=== PATIENT | male | born 1945 | race Caucasian/White ===

== ENCOUNTER 2017-08-23 10:53 | Inpatient (IN) | payer MEDICARE, OTHER ==
[~2017-08-23] VITALS: Ht 172.7 cm; Wt 78.8 kg
[~2017-08-23 10:53] MED LIST: ASPI81CH PO; CEPH500 PO; CIPR500 PO; COLC.6 PO; DIAZ5 PO; FAMO20 PO; FOLI1 PO; HYDCHL25 PO; LEVSOD50 PO; LISHYD2025 PO; LISI20 PO; METO25; METO25ER PO; MULVITMIND PO; OXYACE5T PO; PANT40 PO; POTCHL20ER PO; PRED10 PO; PROACE100 PO; PROM25 PO; SULTRIDS PO; THIA100 PO
[2017-08-23 12:00] LABS: BASOPHILS ABSOLUTE AUTO 0.03 K/mm3 (0.00-0.23); BASOPHILS PERCENT AUTO 0 % (0-2); EOSINOPHILS ABSOLUTE AUTO 0.05 K/mm3 (0.00-0.68); EOSINOPHILS PERCENT AUTO 1 % (0-6); Hematocrit 30.6 % (37.0-53.0); Hemoglobin 10.3 g/dL (13.5-17.5); IMMATURE GRAN ABSOLUTE AUTO 0.14 K/mm3 (0.00-0.10); IMMATURE GRAN PERCENT AUTO 2 % (0-1); LYMPHOCYTES ABSOLUTE AUTO 2.15 K/mm3 (0.84-5.20); LYMPHOCYTES PERCENT AUTO 24 % (21-46); MONOCYTES ABSOLUTE AUTO 0.63 K/mm3 (0.16-1.47); MONOCYTES PERCENT AUTO 7 % (4-13); Mean Corpuscular HGB 34.6 pg (26.0-34.0); Mean Corpuscular HGB Conc 33.7 g/dL (31.5-36.5); Mean Corpuscular Volume 103 fL (80-100); Mean Platelet Volume 8.9 fL (9.1-12.4); NEUTROPHILS ABSOLUTE AUTO 6.12 K/mm3 (1.96-9.15); NEUTROPHILS PERCENT AUTO 67 % (41-73); Platelet Count 152 K/mm3 (150-400); RDW Coefficient Variation 16.7 % (11.7-14.2); RDW Standard Deviation 63.3 fL (35.1-46.3); Red Blood Cell Count 2.98 M/mm3 (4.30-5.90); White Blood Cell Count 9.12 K/mm3 (4.00-11.30)
[2017-08-23 12:27] LABS: Albumin, Blood 2.4 g/dL (3.4-5.0); Albumin/Globulin Ratio 0.6 (0.8-1.8); Bilirubin, Total 0.9 mg/dL (0.1-1.0); Bun/Creatinine Ratio 15.1 (12.0-20.0); Calcium, Blood 8.3 mg/dL (8.5-10.1); Creatinine, Blood 1.46 mg/dL (0.60-1.20); Globulin, Blood 4.3 g/dL (2.2-4.0); Potassium, Blood 3.4 mmol/L (3.5-5.5); Total Protein, Blood 6.7 g/dL (6.4-8.2); Troponin I 0.044 ng/mL (0.000-0.040)
[2017-08-23 14:12] LABS: Triiodothyronine, Free 1.8 pg/mL (2.18-3.98)
[2017-08-23 21:07] LABS: CPK Creatine Kinase 93 U/L (39-308); Creatine Kinase MB Index 1.1 (0.0-4.0); Ethanol (Alcohol), Blood, Med <3 mg/dL; Troponin I 0.037 ng/mL (0.000-0.040)
[2017-08-24 04:44] LABS: Hematocrit 24.5 % (37.0-53.0); Hemoglobin 8.2 g/dL (13.5-17.5); Mean Corpuscular HGB 34.3 pg (26.0-34.0); Mean Corpuscular HGB Conc 33.5 g/dL (31.5-36.5); Mean Corpuscular Volume 103 fL (80-100); Mean Platelet Volume 8.9 fL (9.1-12.4); NRBC ABSOLUTE 0.02 K/mm3 (0.00-0.02); NRBC Auto 0.3 /100 WBC (0.0-0.2); Platelet Count 133 K/mm3 (150-400); RDW Coefficient Variation 16.6 % (11.7-14.2); RDW Standard Deviation 62.7 fL (35.1-46.3); Red Blood Cell Count 2.39 M/mm3 (4.30-5.90); White Blood Cell Count 5.58 K/mm3 (4.00-11.30)
[2017-08-24 05:20] LABS: Creatine Kinase MB 1.3 ng/mL (0.0-3.6); Creatine Kinase MB Index 6.5 (0.0-4.0); Troponin I 0.055 ng/mL (0.000-0.040)
[2017-08-24 05:26] LABS: Albumin/Globulin Ratio 0.6 (0.8-1.8); Bilirubin, Total 0.8 mg/dL (0.1-1.0); Bun/Creatinine Ratio 14.7 (12.0-20.0); Creatinine, Blood 1.36 mg/dL (0.60-1.20); Globulin, Blood 3.6 g/dL (2.2-4.0); Potassium, Blood 3.5 mmol/L (3.5-5.5); Total Protein, Blood 5.6 g/dL (6.4-8.2)
[2017-08-24 05:28] LABS: Calcium, Blood 7.3 mg/dL (8.5-10.1)
[2017-08-25 04:12] LABS: Mean Corpuscular HGB 35.2 pg (26.0-34.0); Mean Corpuscular HGB Conc 33.3 g/dL (31.5-36.5); Mean Platelet Volume 9.1 fL (9.1-12.4); NRBC ABSOLUTE 0.03 K/mm3 (0.00-0.02); NRBC Auto 0.6 /100 WBC (0.0-0.2); Platelet Count 134 K/mm3 (150-400); RDW Coefficient Variation 15.9 % (11.7-14.2); RDW Standard Deviation 61.9 fL (35.1-46.3); Red Blood Cell Count 2.27 M/mm3 (4.30-5.90); White Blood Cell Count 5.45 K/mm3 (4.00-11.30)
[2017-08-25 04:17] LABS: Mean Corpuscular Volume 106 fL (80-100)
[2017-08-25 04:33] LABS: Percent Saturation 79.6 % (20.0-50.0)
[2017-08-25 04:34] LABS: Bun/Creatinine Ratio 14.1 (12.0-20.0); Calcium, Blood 7.3 mg/dL (8.5-10.1); Creatinine, Blood 1.28 mg/dL (0.60-1.20); Potassium, Blood 3.8 mmol/L (3.5-5.5)
[2017-08-26 00:23] LABS: Magnesium, Blood 1.3 mg/dL (1.6-2.4)
[2017-08-26 01:46] LABS: Potassium, Blood 4.2 mmol/L (3.5-5.5)
[2017-08-26 05:01] LABS: Hematocrit 23.2 % (37.0-53.0); Hemoglobin 7.8 g/dL (13.5-17.5); Mean Corpuscular HGB Conc 33.6 g/dL (31.5-36.5); Mean Corpuscular Volume 104 fL (80-100); Mean Platelet Volume 9.5 fL (9.1-12.4); NRBC ABSOLUTE 0.02 K/mm3 (0.00-0.02); NRBC Auto 0.3 /100 WBC (0.0-0.2); Platelet Count 165 K/mm3 (150-400); RDW Coefficient Variation 15.8 % (11.7-14.2); RDW Standard Deviation 60.1 fL (35.1-46.3); Red Blood Cell Count 2.23 M/mm3 (4.30-5.90); White Blood Cell Count 7.02 K/mm3 (4.00-11.30)
[2017-08-26 05:22] LABS: Bun/Creatinine Ratio 12.5 (12.0-20.0); Calcium, Blood 7.7 mg/dL (8.5-10.1); Creatinine, Blood 1.36 mg/dL (0.60-1.20); Potassium, Blood 3.8 mmol/L (3.5-5.5)
[2017-08-26 07:00] LABS: Magnesium, Blood 1.7 mg/dL (1.6-2.4)
[2017-08-28 05:15] LABS: BASOPHILS ABSOLUTE AUTO 0.04 K/mm3 (0.00-0.23); BASOPHILS PERCENT AUTO 1 % (0-2); EOSINOPHILS ABSOLUTE AUTO 0.13 K/mm3 (0.00-0.68); EOSINOPHILS PERCENT AUTO 2 % (0-6); Hematocrit 24.5 % (37.0-53.0); IMMATURE GRAN ABSOLUTE AUTO 0.26 K/mm3 (0.00-0.10); IMMATURE GRAN PERCENT AUTO 3 % (0-1); LYMPHOCYTES ABSOLUTE AUTO 2.46 K/mm3 (0.84-5.20); LYMPHOCYTES PERCENT AUTO 32 % (21-46); MONOCYTES ABSOLUTE AUTO 0.43 K/mm3 (0.16-1.47); MONOCYTES PERCENT AUTO 6 % (4-13); Mean Corpuscular HGB 34.3 pg (26.0-34.0); Mean Corpuscular HGB Conc 32.7 g/dL (31.5-36.5); Mean Corpuscular Volume 105 fL (80-100); Mean Platelet Volume 9.1 fL (9.1-12.4); NEUTROPHILS ABSOLUTE AUTO 4.43 K/mm3 (1.96-9.15); NEUTROPHILS PERCENT AUTO 57 % (41-73); NRBC ABSOLUTE 0.02 K/mm3 (0.00-0.02); NRBC Auto 0.3 /100 WBC (0.0-0.2); Platelet Count 216 K/mm3 (150-400); RDW Standard Deviation 62.8 fL (35.1-46.3); Red Blood Cell Count 2.33 M/mm3 (4.30-5.90); White Blood Cell Count 7.75 K/mm3 (4.00-11.30)
[2017-08-28 06:04] LABS: Bun/Creatinine Ratio 11.4 (12.0-20.0); Calcium, Blood 8.3 mg/dL (8.5-10.1); Creatinine, Blood 1.4 mg/dL (0.60-1.20); Potassium, Blood 3.9 mmol/L (3.5-5.5)
== END 2017-08-28 13:02 | DRG 309 ==
LOC: DELPENDDIS → ER 10:53 → PCU 10:54 → ER 10:54 → PCU 10:55 → ER 12:53 → PCU 12:53 → MEDS 08-24 16:05 → PCU 08-24 16:05 → MEDS 08-25 18:23 → ENPENDDIS 08-26 09:30 → MEDS 08-28 13:02
PROVIDERS: Family Medicine; Internal Medicine; Physician Assistant
PROC: 3E0234Z Introduction of Serum, Toxoid and Vaccine into Muscle, Percutaneous Approach (ICD-10-PCS; principal; 2017-08-23)
DX: I48.91 Unspecified atrial fibrillation (principal); I50.42 Chronic combined systolic (congestive) and diastolic (congestive) heart failure; N17.9 Acute kidney failure, unspecified; I47.2 Ventricular tachycardia; I13.0 Hypertensive heart and chronic kidney disease with heart failure and stage 1 through stage 4 chronic kidney disease, or unspecified chronic kidney disease; G62.1 Alcoholic polyneuropathy; E78.5 Hyperlipidemia, unspecified; Z23 Encounter for immunization; N40.0 Benign prostatic hyperplasia without lower urinary tract symptoms; E03.9 Hypothyroidism, unspecified; E87.6 Hypokalemia; F10.10 Alcohol abuse, uncomplicated; R53.1 Weakness; K21.9 Gastro-esophageal reflux disease without esophagitis; Z91.14 Patient's other noncompliance with medication regimen; I42.0 Dilated cardiomyopathy; D63.8 Anemia in other chronic diseases classified elsewhere; N18.9 Chronic kidney disease, unspecified; F17.220 Nicotine dependence, chewing tobacco, uncomplicated
CPT/HCPCS: 36415; 71046; 76705; 78452; 80048; 80053; 82550; 82553; 82728; 83540; 83550; 83690; 83735; 83880; 84132; 84436; 84443; 84481; 84484; 85025; 85027; 93005; 93010; 93017; 93308; 93321; 97110; 97116; 97162; 97166; 97535; 99285; A9500; G0480; G8978; G8979; G8987; G8988; J0280; J1650; J2785; J3475; J7030

== ENCOUNTER 2017-09-13 16:12 | Emergency (ER) | payer MEDICARE, OTHER ==
[~2017-09-13] VITALS: Ht 172.7 cm; Wt 81.7 kg
[2017-09-13] MEDS ORDERED: LEVSOD50 PO (16:35)
[2017-09-13] MEDS ORDERED: SPIR25 PO (16:36)
[2017-09-13 16:37] LABS: BASOPHILS ABSOLUTE AUTO 0.03 K/mm3 (0.00-0.23); BASOPHILS PERCENT AUTO 0 % (0-2); EOSINOPHILS PERCENT AUTO 0 % (0-6); Hematocrit 30.7 % (37.0-53.0); Hemoglobin 9.8 g/dL (13.5-17.5); IMMATURE GRAN ABSOLUTE AUTO 0.03 K/mm3 (0.00-0.10); IMMATURE GRAN PERCENT AUTO 0 % (0-1); LYMPHOCYTES ABSOLUTE AUTO 1.52 K/mm3 (0.84-5.20); LYMPHOCYTES PERCENT AUTO 15 % (21-46); MONOCYTES ABSOLUTE AUTO 0.66 K/mm3 (0.16-1.47); MONOCYTES PERCENT AUTO 7 % (4-13); Mean Corpuscular HGB Conc 31.9 g/dL (31.5-36.5); Mean Corpuscular Volume 103 fL (80-100); Mean Platelet Volume 8.6 fL (9.1-12.4); NEUTROPHILS ABSOLUTE AUTO 7.87 K/mm3 (1.96-9.15); NEUTROPHILS PERCENT AUTO 78 % (41-73); Platelet Count 224 K/mm3 (150-400); RDW Coefficient Variation 14.6 % (11.7-14.2); RDW Standard Deviation 55.2 fL (35.1-46.3); Red Blood Cell Count 2.97 M/mm3 (4.30-5.90); White Blood Cell Count 10.11 K/mm3 (4.00-11.30)
[2017-09-13 17:07] LABS: Albumin, Blood 2.8 g/dL (3.4-5.0); Albumin/Globulin Ratio 0.7 (0.8-1.8); Bilirubin, Total 1.9 mg/dL (0.1-1.0); Bun/Creatinine Ratio 15.3 (12.0-20.0); Calcium, Blood 8.1 mg/dL (8.5-10.1); Creatinine, Blood 1.31 mg/dL (0.60-1.20); Globulin, Blood 4.2 g/dL (2.2-4.0); Potassium, Blood 4.4 mmol/L (3.5-5.5); Troponin I 0.197 ng/mL (0.000-0.040)
== END 2017-09-13 19:07 | disposition other institution (70) ==
LOC: ER 16:12
PROVIDERS: Emergency Medicine
DX: S06.5X9A Traumatic subdural hemorrhage with loss of consciousness of unspecified duration, initial encounter (principal); F10.20 Alcohol dependence, uncomplicated; E87.2 Acidosis; R79.89 Other specified abnormal findings of blood chemistry; I13.0 Hypertensive heart and chronic kidney disease with heart failure and stage 1 through stage 4 chronic kidney disease, or unspecified chronic kidney disease; N18.9 Chronic kidney disease, unspecified; I50.9 Heart failure, unspecified; E78.5 Hyperlipidemia, unspecified; Z90.49 Acquired absence of other specified parts of digestive tract; Z88.6 Allergy status to analgesic agent; W18.30XA Fall on same level, unspecified, initial encounter
CPT/HCPCS: 36415; 70450; 72170; 80053; 84484; 85025; 93005; 93010; 99285

== ENCOUNTER 2017-09-19 20:00 | Emergency (ER) | payer MEDICARE, OTHER ==
[~2017-09-19] VITALS: Ht 172.7 cm; Wt 81.7 kg
[~2017-09-19 20:00] MED LIST changes: +SPIR25 PO
[2017-09-19] MEDS ORDERED: TAMS.4ER PO (20:21)
[2017-09-19] MEDS ORDERED: ATOR40TA PO (20:21)
[2017-09-19] MEDS ORDERED: THIA100 PO (20:21)
[2017-09-19] MEDS ORDERED: CHOL10002 PO (20:21)
[2017-09-19] MEDS ORDERED: METO100ER PO (20:22)
== END 2017-09-20 00:04 | disposition short-term general hospital (02) ==
LOC: ER 20:00
DX: S06.5X0A Traumatic subdural hemorrhage without loss of consciousness, initial encounter (principal); G93.89 Other specified disorders of brain; I10 Essential (primary) hypertension; W18.30XA Fall on same level, unspecified, initial encounter; Z88.8 Allergy status to other drugs, medicaments and biological substances; Z88.5 Allergy status to narcotic agent; Z79.899 Other long term (current) drug therapy
CPT/HCPCS: 70450; 72125; 99285

== ENCOUNTER 2017-11-16 13:33 | Inpatient (IN) | payer MEDICARE, OTHER ==
[~2017-11-16] VITALS: Ht 172.7 cm; Wt 80.1 kg
[~2017-11-16 13:33] MED LIST changes: +ATOR40TA PO; +CHOL10002 PO; +METO100ER PO; +TAMS.4ER PO
[2017-11-16 14:24] LABS: BASOPHILS ABSOLUTE AUTO 0.05 K/mm3 (0.00-0.23); BASOPHILS PERCENT AUTO 1 % (0-2); EOSINOPHILS ABSOLUTE AUTO 0.11 K/mm3 (0.00-0.68); EOSINOPHILS PERCENT AUTO 2 % (0-6); Hematocrit 31.2 % (37.0-53.0); Hemoglobin 10.2 g/dL (13.5-17.5); IMMATURE GRAN ABSOLUTE AUTO 0.02 K/mm3 (0.00-0.10); IMMATURE GRAN PERCENT AUTO 0 % (0-1); LYMPHOCYTES ABSOLUTE AUTO 1.47 K/mm3 (0.84-5.20); LYMPHOCYTES PERCENT AUTO 22 % (21-46); MONOCYTES ABSOLUTE AUTO 0.39 K/mm3 (0.16-1.47); MONOCYTES PERCENT AUTO 6 % (4-13); Mean Corpuscular HGB 29.7 pg (26.0-34.0); Mean Corpuscular HGB Conc 32.7 g/dL (31.5-36.5); Mean Corpuscular Volume 91 fL (80-100); Mean Platelet Volume 8.5 fL (9.1-12.4); NEUTROPHILS ABSOLUTE AUTO 4.69 K/mm3 (1.96-9.15); NEUTROPHILS PERCENT AUTO 70 % (41-73); Platelet Count 261 K/mm3 (150-400); RDW Standard Deviation 53.1 fL (35.1-46.3); Red Blood Cell Count 3.43 M/mm3 (4.30-5.90); White Blood Cell Count 6.73 K/mm3 (4.00-11.30)
[2017-11-16 14:51] LABS: Alanine Aminotransfer (ALT/SGP 26 U/L (12-78); Albumin, Blood 2.3 g/dL (3.4-5.0); Albumin/Globulin Ratio 0.5 (0.8-1.8); Alk Phos 147 U/L (50-136); Anion Gap 10 mmol/L (6-16); Aspartate Aminotrans (AST/SGOT 29 U/L (12-37); Bilirubin, Total 0.5 mg/dL (0.1-1.0); Blood Urea Nitrogen 10 mg/dL (8-24); Bun/Creatinine Ratio 9.8 (12.0-20.0); CO2, Blood 22 mmol/L (21-32); Calcium, Blood 7.8 mg/dL (8.5-10.1); Chloride, Blood 102 mmol/L (98-108); Creatinine, Blood 1.02 mg/dL (0.60-1.20); Globulin, Blood 4.2 g/dL (2.2-4.0); Glomerular Filtration Rate >60 (60-); Glucose, Blood 94 mg/dL (70-99); Potassium, Blood 3.5 mmol/L (3.5-5.5); Sodium, Blood 134 mmol/L (136-145); Total Protein, Blood 6.5 g/dL (6.4-8.2); Troponin I 0.025 ng/mL (0.000-0.040)
[2017-11-16] MEDS ORDERED: DOCU100 PO (18:30)
[2017-11-16] MEDS ORDERED: METO50 PO (18:31)
[2017-11-17 02:46] LABS: Alanine Aminotransfer (ALT/SGP 23 U/L (12-78); Albumin, Blood 1.9 g/dL (3.4-5.0); Albumin/Globulin Ratio 0.5 (0.8-1.8); Alk Phos 122 U/L (50-136); Anion Gap 8 mmol/L (6-16); Aspartate Aminotrans (AST/SGOT 22 U/L (12-37); Bilirubin, Total 0.4 mg/dL (0.1-1.0); Blood Urea Nitrogen 11 mg/dL (8-24); Bun/Creatinine Ratio 9.7 (12.0-20.0); CO2, Blood 26 mmol/L (21-32); Calcium, Blood 7.4 mg/dL (8.5-10.1); Chloride, Blood 103 mmol/L (98-108); Creatinine, Blood 1.13 mg/dL (0.60-1.20); Globulin, Blood 3.6 g/dL (2.2-4.0); Glomerular Filtration Rate >60 (60-); Glucose, Blood 100 mg/dL (70-99); Magnesium, Blood 1.5 mg/dL (1.6-2.4); Phosphorus, Blood 3.7 mg/dL (2.5-4.9); Potassium, Blood 3.4 mmol/L (3.5-5.5); Sodium, Blood 137 mmol/L (136-145); Total Protein, Blood 5.5 g/dL (6.4-8.2)
[2017-11-17 03:00] LABS: International Normalized Ratio 1.19; Prothrombin Time Results 12.4 Sec (9.7-11.5)
[2017-11-17 11:59] LABS: Alanine Aminotransfer (ALT/SGP 22 U/L (12-78); Albumin, Blood 2.2 g/dL (3.4-5.0); Albumin/Globulin Ratio 0.6 (0.8-1.8); Alk Phos 133 U/L (50-136); Anion Gap 6 mmol/L (6-16); Aspartate Aminotrans (AST/SGOT 27 U/L (12-37); Bilirubin, Total 0.6 mg/dL (0.1-1.0); Blood Urea Nitrogen 12 mg/dL (8-24); Bun/Creatinine Ratio 10.4 (12.0-20.0); CO2, Blood 26 mmol/L (21-32); Calcium, Blood 7.8 mg/dL (8.5-10.1); Chloride, Blood 102 mmol/L (98-108); Creatinine, Blood 1.15 mg/dL (0.60-1.20); Globulin, Blood 3.8 g/dL (2.2-4.0); Glomerular Filtration Rate >60 (60-); Glucose, Blood 93 mg/dL (70-99); Potassium, Blood 3.2 mmol/L (3.5-5.5); Sodium, Blood 134 mmol/L (136-145)
[2017-11-18 03:48] LABS: BASOPHILS ABSOLUTE AUTO 0.04 K/mm3 (0.00-0.23); BASOPHILS PERCENT AUTO 1 % (0-2); EOSINOPHILS PERCENT AUTO 2 % (0-6); Hematocrit 26.3 % (37.0-53.0); Hemoglobin 8.7 g/dL (13.5-17.5); IMMATURE GRAN ABSOLUTE AUTO 0.02 K/mm3 (0.00-0.10); IMMATURE GRAN PERCENT AUTO 0 % (0-1); LYMPHOCYTES ABSOLUTE AUTO 1.62 K/mm3 (0.84-5.20); LYMPHOCYTES PERCENT AUTO 31 % (21-46); MONOCYTES PERCENT AUTO 8 % (4-13); Mean Corpuscular HGB 29.7 pg (26.0-34.0); Mean Corpuscular HGB Conc 33.1 g/dL (31.5-36.5); Mean Corpuscular Volume 90 fL (80-100); Mean Platelet Volume 8.5 fL (9.1-12.4); NEUTROPHILS ABSOLUTE AUTO 3.02 K/mm3 (1.96-9.15); NEUTROPHILS PERCENT AUTO 58 % (41-73); Platelet Count 205 K/mm3 (150-400); RDW Standard Deviation 53.3 fL (35.1-46.3); Red Blood Cell Count 2.93 M/mm3 (4.30-5.90)
[2017-11-18 04:00] LABS: International Normalized Ratio 1.27; Prothrombin Time Results 13.3 Sec (9.7-11.5)
[2017-11-18 04:10] LABS: Albumin, Blood 1.8 g/dL (3.4-5.0); Albumin/Globulin Ratio 0.5 (0.8-1.8); Bilirubin, Total 0.4 mg/dL (0.1-1.0); Bun/Creatinine Ratio 10.2 (12.0-20.0); Calcium, Blood 7.3 mg/dL (8.5-10.1); Creatinine, Blood 1.27 mg/dL (0.60-1.20); Globulin, Blood 3.5 g/dL (2.2-4.0); Potassium, Blood 3.6 mmol/L (3.5-5.5); Total Protein, Blood 5.3 g/dL (6.4-8.2)
[2017-11-18 12:29] LABS: BASOPHILS ABSOLUTE AUTO 0.05 K/mm3 (0.00-0.23); BASOPHILS PERCENT AUTO 1 % (0-2); EOSINOPHILS ABSOLUTE AUTO 0.11 K/mm3 (0.00-0.68); EOSINOPHILS PERCENT AUTO 2 % (0-6); Hematocrit 29.6 % (37.0-53.0); Hemoglobin 9.5 g/dL (13.5-17.5); IMMATURE GRAN ABSOLUTE AUTO 0.02 K/mm3 (0.00-0.10); IMMATURE GRAN PERCENT AUTO 0 % (0-1); LYMPHOCYTES ABSOLUTE AUTO 1.72 K/mm3 (0.84-5.20); LYMPHOCYTES PERCENT AUTO 29 % (21-46); MONOCYTES ABSOLUTE AUTO 0.41 K/mm3 (0.16-1.47); MONOCYTES PERCENT AUTO 7 % (4-13); Mean Corpuscular HGB 30.3 pg (26.0-34.0); Mean Corpuscular HGB Conc 32.1 g/dL (31.5-36.5); Mean Platelet Volume 8.6 fL (9.1-12.4); NEUTROPHILS ABSOLUTE AUTO 3.64 K/mm3 (1.96-9.15); NEUTROPHILS PERCENT AUTO 61 % (41-73); Platelet Count 235 K/mm3 (150-400); RDW Coefficient Variation 16.2 % (11.7-14.2); RDW Standard Deviation 56.2 fL (35.1-46.3); Red Blood Cell Count 3.14 M/mm3 (4.30-5.90); White Blood Cell Count 5.95 K/mm3 (4.00-11.30)
[2017-11-18 12:40] LABS: Mean Corpuscular Volume 94 fL (80-100)
[2017-11-18 12:48] LABS: Alanine Aminotransfer (ALT/SGP 20 U/L (12-78); Albumin/Globulin Ratio 0.5 (0.8-1.8); Alk Phos 123 U/L (50-136); Anion Gap 10 mmol/L (6-16); Aspartate Aminotrans (AST/SGOT 20 U/L (12-37); Bilirubin, Total 0.3 mg/dL (0.1-1.0); Blood Urea Nitrogen 15 mg/dL (8-24); Bun/Creatinine Ratio 12.6 (12.0-20.0); CO2, Blood 26 mmol/L (21-32); Calcium, Blood 7.7 mg/dL (8.5-10.1); Chloride, Blood 100 mmol/L (98-108); Creatinine, Blood 1.19 mg/dL (0.60-1.20); Globulin, Blood 3.9 g/dL (2.2-4.0); Glomerular Filtration Rate >60 (60-); Glucose, Blood 84 mg/dL (70-99); Potassium, Blood 3.2 mmol/L (3.5-5.5); Sodium, Blood 136 mmol/L (136-145); Total Protein, Blood 5.9 g/dL (6.4-8.2)
[2017-11-19 04:14] LABS: BASOPHILS ABSOLUTE AUTO 0.05 K/mm3 (0.00-0.23); BASOPHILS PERCENT AUTO 1 % (0-2); EOSINOPHILS ABSOLUTE AUTO 0.12 K/mm3 (0.00-0.68); EOSINOPHILS PERCENT AUTO 2 % (0-6); Hematocrit 27.4 % (37.0-53.0); Hemoglobin 9.1 g/dL (13.5-17.5); IMMATURE GRAN ABSOLUTE AUTO 0.02 K/mm3 (0.00-0.10); IMMATURE GRAN PERCENT AUTO 0 % (0-1); LYMPHOCYTES ABSOLUTE AUTO 1.74 K/mm3 (0.84-5.20); LYMPHOCYTES PERCENT AUTO 29 % (21-46); MONOCYTES ABSOLUTE AUTO 0.46 K/mm3 (0.16-1.47); MONOCYTES PERCENT AUTO 8 % (4-13); Mean Corpuscular HGB 30.3 pg (26.0-34.0); Mean Corpuscular HGB Conc 33.2 g/dL (31.5-36.5); Mean Corpuscular Volume 91 fL (80-100); Mean Platelet Volume 8.6 fL (9.1-12.4); NEUTROPHILS ABSOLUTE AUTO 3.68 K/mm3 (1.96-9.15); NEUTROPHILS PERCENT AUTO 61 % (41-73); Platelet Count 217 K/mm3 (150-400); RDW Coefficient Variation 15.9 % (11.7-14.2); RDW Standard Deviation 53.1 fL (35.1-46.3); White Blood Cell Count 6.07 K/mm3 (4.00-11.30)
[2017-11-19 04:24] LABS: International Normalized Ratio 1.52
[2017-11-19 04:32] LABS: Alanine Aminotransfer (ALT/SGP 16 U/L (12-78); Albumin, Blood 1.9 g/dL (3.4-5.0); Albumin/Globulin Ratio 0.6 (0.8-1.8); Alk Phos 100 U/L (50-136); Anion Gap 8 mmol/L (6-16); Aspartate Aminotrans (AST/SGOT 12 U/L (12-37); Bilirubin, Total 0.2 mg/dL (0.1-1.0); Blood Urea Nitrogen 16 mg/dL (8-24); Bun/Creatinine Ratio 14.4 (12.0-20.0); CO2, Blood 28 mmol/L (21-32); Calcium, Blood 7.5 mg/dL (8.5-10.1); Chloride, Blood 98 mmol/L (98-108); Creatinine, Blood 1.11 mg/dL (0.60-1.20); Globulin, Blood 3.4 g/dL (2.2-4.0); Glomerular Filtration Rate >60 (60-); Glucose, Blood 89 mg/dL (70-99); Potassium, Blood 3.3 mmol/L (3.5-5.5); Sodium, Blood 134 mmol/L (136-145); Total Protein, Blood 5.3 g/dL (6.4-8.2)
[2017-11-20 04:13] LABS: BASOPHILS ABSOLUTE AUTO 0.04 K/mm3 (0.00-0.23); BASOPHILS PERCENT AUTO 1 % (0-2); EOSINOPHILS ABSOLUTE AUTO 0.19 K/mm3 (0.00-0.68); EOSINOPHILS PERCENT AUTO 3 % (0-6); Hematocrit 27.4 % (37.0-53.0); IMMATURE GRAN ABSOLUTE AUTO 0.03 K/mm3 (0.00-0.10); IMMATURE GRAN PERCENT AUTO 1 % (0-1); LYMPHOCYTES ABSOLUTE AUTO 1.45 K/mm3 (0.84-5.20); LYMPHOCYTES PERCENT AUTO 23 % (21-46); MONOCYTES ABSOLUTE AUTO 0.55 K/mm3 (0.16-1.47); MONOCYTES PERCENT AUTO 9 % (4-13); Mean Corpuscular HGB 30.5 pg (26.0-34.0); Mean Corpuscular HGB Conc 32.8 g/dL (31.5-36.5); Mean Corpuscular Volume 93 fL (80-100); Mean Platelet Volume 8.9 fL (9.1-12.4); NEUTROPHILS ABSOLUTE AUTO 3.96 K/mm3 (1.96-9.15); NEUTROPHILS PERCENT AUTO 64 % (41-73); Platelet Count 220 K/mm3 (150-400); RDW Coefficient Variation 15.9 % (11.7-14.2); RDW Standard Deviation 54.1 fL (35.1-46.3); Red Blood Cell Count 2.95 M/mm3 (4.30-5.90); White Blood Cell Count 6.22 K/mm3 (4.00-11.30)
[2017-11-20 04:21] LABS: International Normalized Ratio 1.88; Prothrombin Time Results 19.9 Sec (9.7-11.5)
[2017-11-20 04:37] LABS: Anion Gap 7 mmol/L (6-16); Blood Urea Nitrogen 18 mg/dL (8-24); Bun/Creatinine Ratio 15.5 (12.0-20.0); CO2, Blood 30 mmol/L (21-32); Calcium, Blood 7.7 mg/dL (8.5-10.1); Chloride, Blood 96 mmol/L (98-108); Creatinine, Blood 1.16 mg/dL (0.60-1.20); Glomerular Filtration Rate >60 (60-); Glucose, Blood 94 mg/dL (70-99); Potassium, Blood 3.5 mmol/L (3.5-5.5); Sodium, Blood 133 mmol/L (136-145)
[2017-11-21 04:19] LABS: International Normalized Ratio 2.96; Prothrombin Time Results 31.8 Sec (9.7-11.5)
[2017-11-22 04:21] LABS: BASOPHILS ABSOLUTE AUTO 0.03 K/mm3 (0.00-0.23); BASOPHILS PERCENT AUTO 1 % (0-2); EOSINOPHILS ABSOLUTE AUTO 0.22 K/mm3 (0.00-0.68); EOSINOPHILS PERCENT AUTO 4 % (0-6); Hematocrit 27.6 % (37.0-53.0); IMMATURE GRAN ABSOLUTE AUTO 0.02 K/mm3 (0.00-0.10); IMMATURE GRAN PERCENT AUTO 0 % (0-1); LYMPHOCYTES PERCENT AUTO 25 % (21-46); MONOCYTES ABSOLUTE AUTO 0.39 K/mm3 (0.16-1.47); MONOCYTES PERCENT AUTO 6 % (4-13); Mean Corpuscular HGB 30.2 pg (26.0-34.0); Mean Corpuscular HGB Conc 32.6 g/dL (31.5-36.5); Mean Corpuscular Volume 93 fL (80-100); Mean Platelet Volume 9.1 fL (9.1-12.4); NEUTROPHILS ABSOLUTE AUTO 3.91 K/mm3 (1.96-9.15); NEUTROPHILS PERCENT AUTO 65 % (41-73); Platelet Count 218 K/mm3 (150-400); RDW Coefficient Variation 15.8 % (11.7-14.2); RDW Standard Deviation 53.6 fL (35.1-46.3); Red Blood Cell Count 2.98 M/mm3 (4.30-5.90); White Blood Cell Count 6.07 K/mm3 (4.00-11.30)
[2017-11-22 04:39] LABS: International Normalized Ratio 2.79; Prothrombin Time Results 29.9 Sec (9.7-11.5)
[2017-11-22 04:40] LABS: Anion Gap 8 mmol/L (6-16); Blood Urea Nitrogen 22 mg/dL (8-24); Bun/Creatinine Ratio 18.2 (12.0-20.0); CO2, Blood 29 mmol/L (21-32); Calcium, Blood 7.8 mg/dL (8.5-10.1); Chloride, Blood 95 mmol/L (98-108); Creatinine, Blood 1.21 mg/dL (0.60-1.20); Glomerular Filtration Rate >60 (60-); Glucose, Blood 126 mg/dL (70-99); Potassium, Blood 3.7 mmol/L (3.5-5.5); Sodium, Blood 132 mmol/L (136-145)
[2017-11-23 04:13] LABS: International Normalized Ratio 3.03; Prothrombin Time Results 32.6 Sec (9.7-11.5)
[2017-11-23 04:17] LABS: Albumin, Blood 2.1 g/dL (3.4-5.0); Anion Gap 8 mmol/L (6-16); Blood Urea Nitrogen 21 mg/dL (8-24); Bun/Creatinine Ratio 15.8 (12.0-20.0); CO2, Blood 28 mmol/L (21-32); Calcium, Blood 7.7 mg/dL (8.5-10.1); Chloride, Blood 94 mmol/L (98-108); Creatinine, Blood 1.33 mg/dL (0.60-1.20); Glomerular Filtration Rate 56 (60-); Glucose, Blood 108 mg/dL (70-99); Sodium, Blood 130 mmol/L (136-145)
[2017-11-24 04:57] LABS: Albumin, Blood 2.1 g/dL (3.4-5.0); Anion Gap 8 mmol/L (6-16); Blood Urea Nitrogen 20 mg/dL (8-24); Bun/Creatinine Ratio 16.4 (12.0-20.0); CO2, Blood 29 mmol/L (21-32); Calcium, Blood 7.8 mg/dL (8.5-10.1); Chloride, Blood 95 mmol/L (98-108); Creatinine, Blood 1.22 mg/dL (0.60-1.20); Glomerular Filtration Rate >60 (60-); Glucose, Blood 104 mg/dL (70-99); Phosphorus, Blood 3.2 mg/dL (2.5-4.9); Potassium, Blood 3.6 mmol/L (3.5-5.5); Sodium, Blood 132 mmol/L (136-145)
[2017-11-24 05:04] LABS: International Normalized Ratio 3.07
[2017-11-25 05:30] LABS: International Normalized Ratio 2.56; Prothrombin Time Results 27.4 Sec (9.7-11.5)
[2017-11-25 05:47] LABS: Anion Gap 8 mmol/L (6-16); Blood Urea Nitrogen 22 mg/dL (8-24); Bun/Creatinine Ratio 17.6 (12.0-20.0); CO2, Blood 28 mmol/L (21-32); Calcium, Blood 7.7 mg/dL (8.5-10.1); Chloride, Blood 96 mmol/L (98-108); Creatinine, Blood 1.25 mg/dL (0.60-1.20); Glomerular Filtration Rate >60 (60-); Glucose, Blood 93 mg/dL (70-99); Sodium, Blood 132 mmol/L (136-145)
[2017-11-26 07:17] LABS: International Normalized Ratio 2.34
[2017-11-26 10:02] LABS: Anion Gap 8 mmol/L (6-16); Blood Urea Nitrogen 23 mg/dL (8-24); Bun/Creatinine Ratio 21.7 (12.0-20.0); CO2, Blood 27 mmol/L (21-32); Calcium, Blood 7.7 mg/dL (8.5-10.1); Chloride, Blood 97 mmol/L (98-108); Creatinine, Blood 1.06 mg/dL (0.60-1.20); Glomerular Filtration Rate >60 (60-); Glucose, Blood 113 mg/dL (70-99); Potassium, Blood 3.9 mmol/L (3.5-5.5); Sodium, Blood 132 mmol/L (136-145)
[2017-11-27 05:21] LABS: International Normalized Ratio 2.16
[2017-11-27 05:26] LABS: Anion Gap 8 mmol/L (6-16); Blood Urea Nitrogen 22 mg/dL (8-24); CO2, Blood 27 mmol/L (21-32); Calcium, Blood 8.1 mg/dL (8.5-10.1); Chloride, Blood 97 mmol/L (98-108); Creatinine, Blood 1.16 mg/dL (0.60-1.20); Glomerular Filtration Rate >60 (60-); Glucose, Blood 106 mg/dL (70-99); Potassium, Blood 4.2 mmol/L (3.5-5.5); Sodium, Blood 132 mmol/L (136-145)
[2017-11-27] MEDS ORDERED: MUCUS RELIEF600 MG PO (11:39)
[2017-11-27] MEDS ORDERED: Lisinopril2.5 MG PO (11:40)
[2017-11-27] MEDS ORDERED: FURO20 PO (11:42)
[2017-11-27] MEDS ORDERED: XARELTO15 MG PO (11:43)
== END 2017-11-27 12:47 | disposition home health service (06) | DRG 291 ==
LOC: ER 13:33 → PCU 16:22 → MEDS 16:22 → PCU 17:25 → MEDS 11-23 11:15
PROVIDERS: Emergency Medicine; Family Medicine; Internal Medicine
DX: I13.0 Hypertensive heart and chronic kidney disease with heart failure and stage 1 through stage 4 chronic kidney disease, or unspecified chronic kidney disease (principal); J18.9 Pneumonia, unspecified organism; I50.43 Acute on chronic combined systolic (congestive) and diastolic (congestive) heart failure; J96.21 Acute and chronic respiratory failure with hypoxia; J44.0 Chronic obstructive pulmonary disease with (acute) lower respiratory infection; E87.1 Hypo-osmolality and hyponatremia; N17.9 Acute kidney failure, unspecified; I82.401 Acute embolism and thrombosis of unspecified deep veins of right lower extremity; N18.3 Chronic kidney disease, stage 3 (moderate); N40.0 Benign prostatic hyperplasia without lower urinary tract symptoms; F17.220 Nicotine dependence, chewing tobacco, uncomplicated; F10.20 Alcohol dependence, uncomplicated; E03.9 Hypothyroidism, unspecified; Z91.19 Patient's noncompliance with other medical treatment and regimen; D64.9 Anemia, unspecified; I48.2 Chronic atrial fibrillation; I95.9 Hypotension, unspecified; I25.10 Atherosclerotic heart disease of native coronary artery without angina pectoris; T50.2X5A Adverse effect of carbonic-anhydrase inhibitors, benzothiadiazides and other diuretics, initial encounter
CPT/HCPCS: 36415; 51702; 71045; 71046; 71250; 80048; 80053; 80069; 83735; 83880; 84100; 84443; 84484; 85025; 85610; 86850; 86900; 86901; 93005; 93010; 93306; 93970; 93971; 94760; 96374; 97110; 97116; 97162; 97166; 97530; 97535; 99285; G0515; G8978; G8979; G8980; G8987; G8988; J0295; J1650; J1940; J1956; J2405; J3411; J3475; J3480; J7030; J7042

== ENCOUNTER 2018-10-09 17:16 | Inpatient (IN) | payer MEDICARE, OTHER ==
[~2018-10-09] VITALS: Ht 172.7 cm; Wt 73.4 kg
[~2018-10-09 17:16] MED LIST changes: +DOCU100 PO; +FURO20 PO; +Lisinopril2.5 MG PO; +METO50 PO; +MUCUS RELIEF600 MG PO; +Thiamine HCl100 MG PO; +XARELTO15 MG PO
[2018-10-09 20:53] LABS: BASOPHILS ABSOLUTE AUTO 0.06 K/mm3 (0.00-0.23); BASOPHILS PERCENT AUTO 1 % (0-2); EOSINOPHILS ABSOLUTE AUTO 0.13 K/mm3 (0.00-0.68); EOSINOPHILS PERCENT AUTO 3 % (0-6); Hematocrit 33.6 % (37.0-53.0); Hemoglobin 10.7 g/dL (13.5-17.5); IMMATURE GRAN ABSOLUTE AUTO 0.01 K/mm3 (0.00-0.10); IMMATURE GRAN PERCENT AUTO 0 % (0-1); LYMPHOCYTES ABSOLUTE AUTO 1.53 K/mm3 (0.84-5.20); LYMPHOCYTES PERCENT AUTO 29 % (21-46); MONOCYTES ABSOLUTE AUTO 0.57 K/mm3 (0.16-1.47); MONOCYTES PERCENT AUTO 11 % (4-13); Mean Corpuscular HGB 30.4 pg (26.0-34.0); Mean Corpuscular HGB Conc 31.8 g/dL (31.5-36.5); Mean Corpuscular Volume 96 fL (80-100); Mean Platelet Volume 8.8 fL (9.1-12.4); NEUTROPHILS ABSOLUTE AUTO 2.91 K/mm3 (1.96-9.15); NEUTROPHILS PERCENT AUTO 56 % (41-73); Platelet Count 247 K/mm3 (150-400); RDW Coefficient Variation 14.8 % (11.7-14.2); RDW Standard Deviation 51.9 fL (35.1-46.3); Red Blood Cell Count 3.52 M/mm3 (4.30-5.90); White Blood Cell Count 5.21 K/mm3 (4.00-11.30)
[2018-10-09 21:13] LABS: Albumin, Blood 3.2 g/dL (3.4-5.0); Albumin/Globulin Ratio 0.8 (0.8-1.8); Bilirubin, Total 0.6 mg/dL (0.1-1.0); Bun/Creatinine Ratio 14.4 (12.0-20.0); Calcium, Blood 8.7 mg/dL (8.5-10.1); Creatinine, Blood 1.39 mg/dL (0.60-1.20); Total Protein, Blood 7.2 g/dL (6.4-8.2); Troponin I 0.029 ng/mL (0.000-0.040)
[2018-10-09 23:30] LABS: Ethanol (Alcohol), Blood, Med <3 mg/dL; Magnesium, Blood 1.8 mg/dL (1.6-2.4)
[2018-10-10 06:34] LABS: Hematocrit 35.2 % (37.0-53.0); Hemoglobin 10.8 g/dL (13.5-17.5); Mean Corpuscular HGB 29.8 pg (26.0-34.0); Mean Corpuscular HGB Conc 30.7 g/dL (31.5-36.5); Mean Corpuscular Volume 97 fL (80-100); Mean Platelet Volume 8.8 fL (9.1-12.4); Platelet Count 240 K/mm3 (150-400); RDW Standard Deviation 53.4 fL (35.1-46.3); Red Blood Cell Count 3.62 M/mm3 (4.30-5.90)
[2018-10-10 06:52] LABS: Bun/Creatinine Ratio 14.3 (12.0-20.0); Calcium, Blood 8.7 mg/dL (8.5-10.1); Creatinine, Blood 1.47 mg/dL (0.60-1.20); Magnesium, Blood 1.8 mg/dL (1.6-2.4); Potassium, Blood 4.1 mmol/L (3.5-5.5)
[2018-10-10 09:54] LABS: Total Protein, Blood 7.1 g/dL (6.4-8.2)
[2018-10-10 11:11] LABS: International Normalized Ratio 1.25
[2018-10-10 12:55] LABS: Automated BF WBC Count 0.046 K/mm3 (0-999); Body Fluid WBC Count 46 /mm3 (0-999)
[2018-10-10 13:10] LABS: Albumin, Body Fluid 1.7 g/dL; Lactate Dehydrogenase, Body Fl 66 U/L
[2018-10-10 13:19] LABS: Appearance, Body Fluid Clear (Clear); Color, Body Fluid L Yellow (None-Yellow)
[2018-10-10 13:22] LABS: RBC Count, Body Fluid 5 /mm3 (0-0)
[2018-10-10 13:26] LABS: Total Cell Count, Body Fluid 100
--- NOTE | 2018-10-11 03:50 | NUR ---
PCU CLERICAL INVESTIGATOR CALLED STATED PT HAD SHORT RUN OF V-TACH. PT ASSESSED AND DENIES CX PAIN OR SOB. TECH SENDING STRIP.
--- NOTE | 2018-10-11 04:58 | NUR ---
SHIFT SUMMARY PT ARRIVED TO FLOOR FROM ER. PT HAS BEEN RESTING WELL SINCE ARRIVAL. PT HAD NO COMPLAINTS OR ACUTE ISSUES. PT DID HAVE SHORT RUN OF V-TACH PER MARKETING DESIGNER. PT HAD NO ISSUES FROM THIS. PT IS CURRENTLY SLEEPING AND BREATHING EASY. CALL LIGHT IN REACH.
[2018-10-11 05:26] LABS: BASOPHILS ABSOLUTE AUTO 0.04 K/mm3 (0.00-0.23); BASOPHILS PERCENT AUTO 1 % (0-2); EOSINOPHILS ABSOLUTE AUTO 0.17 K/mm3 (0.00-0.68); EOSINOPHILS PERCENT AUTO 3 % (0-6); Hematocrit 35.2 % (37.0-53.0); Hemoglobin 10.7 g/dL (13.5-17.5); IMMATURE GRAN ABSOLUTE AUTO 0.01 K/mm3 (0.00-0.10); IMMATURE GRAN PERCENT AUTO 0 % (0-1); LYMPHOCYTES ABSOLUTE AUTO 1.26 K/mm3 (0.84-5.20); LYMPHOCYTES PERCENT AUTO 25 % (21-46); MONOCYTES ABSOLUTE AUTO 0.51 K/mm3 (0.16-1.47); MONOCYTES PERCENT AUTO 10 % (4-13); Mean Corpuscular HGB 30.4 pg (26.0-34.0); Mean Corpuscular HGB Conc 30.4 g/dL (31.5-36.5); Mean Platelet Volume 8.8 fL (9.1-12.4); NEUTROPHILS ABSOLUTE AUTO 2.98 K/mm3 (1.96-9.15); NEUTROPHILS PERCENT AUTO 60 % (41-73); Platelet Count 226 K/mm3 (150-400); RDW Coefficient Variation 14.8 % (11.7-14.2); RDW Standard Deviation 53.9 fL (35.1-46.3); Red Blood Cell Count 3.52 M/mm3 (4.30-5.90); White Blood Cell Count 4.97 K/mm3 (4.00-11.30)
[2018-10-11 05:31] LABS: Mean Corpuscular Volume 100 fL (80-100)
[2018-10-11 05:47] LABS: Albumin, Blood 2.8 g/dL (3.4-5.0); Anion Gap 12 mmol/L (6-16); Blood Urea Nitrogen 24 mg/dL (8-24); Bun/Creatinine Ratio 15.3 (12.0-20.0); CO2, Blood 19 mmol/L (21-32); Calcium, Blood 8.4 mg/dL (8.5-10.1); Chloride, Blood 105 mmol/L (98-108); Creatinine, Blood 1.57 mg/dL (0.60-1.20); Glomerular Filtration Rate 46 (60-); Glucose, Blood 91 mg/dL (70-99); Phosphorus, Blood 4.7 mg/dL (2.5-4.9); Potassium, Blood 4.1 mmol/L (3.5-5.5); Sodium, Blood 136 mmol/L (136-145)
[2018-10-11 11:26] LABS: Glucose, Body Fluid 101 mg/dL
--- NOTE | 2018-10-11 18:45 | NUR ---
PT. LYING QUIETLY PT. HAD A SPEECH EVAL TODAY WELL DR. BOBO CONSULTING. PT. HAD EPISODE OF N/V AND DIZZINESS BUT VSS. PT. ON BEDREST UNTIL FURTHER NOTICE.
--- NOTE | 2018-10-12 05:42 | NUR ---
NPO STATUS PT NPO BESIDES ICE CHIPS AND WATER SINCE MIDNIGHT PER DR FLORES ORDERS. PT IS TO UNDERGO EGD 10/12.
[2018-10-12 05:43] LABS: BASOPHILS ABSOLUTE AUTO 0.04 K/mm3 (0.00-0.23); BASOPHILS PERCENT AUTO 1 % (0-2); EOSINOPHILS ABSOLUTE AUTO 0.23 K/mm3 (0.00-0.68); EOSINOPHILS PERCENT AUTO 5 % (0-6); Hemoglobin 9.2 g/dL (13.5-17.5); IMMATURE GRAN ABSOLUTE AUTO 0.01 K/mm3 (0.00-0.10); IMMATURE GRAN PERCENT AUTO 0 % (0-1); LYMPHOCYTES ABSOLUTE AUTO 1.27 K/mm3 (0.84-5.20); LYMPHOCYTES PERCENT AUTO 28 % (21-46); MONOCYTES ABSOLUTE AUTO 0.36 K/mm3 (0.16-1.47); MONOCYTES PERCENT AUTO 8 % (4-13); Mean Corpuscular HGB 29.7 pg (26.0-34.0); Mean Corpuscular HGB Conc 30.7 g/dL (31.5-36.5); Mean Platelet Volume 9.1 fL (9.1-12.4); NEUTROPHILS ABSOLUTE AUTO 2.67 K/mm3 (1.96-9.15); NEUTROPHILS PERCENT AUTO 58 % (41-73); Platelet Count 238 K/mm3 (150-400); RDW Coefficient Variation 14.9 % (11.7-14.2); RDW Standard Deviation 52.9 fL (35.1-46.3); White Blood Cell Count 4.58 K/mm3 (4.00-11.30)
[2018-10-12 05:59] LABS: Mean Corpuscular Volume 97 fL (80-100)
[2018-10-12 06:02] LABS: Albumin, Blood 2.6 g/dL (3.4-5.0); Anion Gap 10 mmol/L (6-16); Blood Urea Nitrogen 28 mg/dL (8-24); Bun/Creatinine Ratio 16.8 (12.0-20.0); CO2, Blood 23 mmol/L (21-32); Calcium, Blood 8.2 mg/dL (8.5-10.1); Chloride, Blood 104 mmol/L (98-108); Creatinine, Blood 1.67 mg/dL (0.60-1.20); Glomerular Filtration Rate 43 (60-); Glucose, Blood 91 mg/dL (70-99); Phosphorus, Blood 4.7 mg/dL (2.5-4.9); Potassium, Blood 4.3 mmol/L (3.5-5.5); Sodium, Blood 137 mmol/L (136-145)
--- NOTE | 2018-10-12 06:13 | NUR ---
SHIFT SUMMARY: DR FLORES IN TO SEE PT LAST NIGHT. PT IS NPO FOR EGD 3/[address]; NSR c FIRST DEGREE BLOCK @ 65 BPM. LS DIM T/O; 2L VIA NC. 1 PER ASSIST TO BSC. 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 NO OTHER CHANGES TO REPORT. WILL CONT TO MONITOR AND PROVIDE CARE UNTIL PRESUMED BY ONCOMING RN.
--- NOTE | 2018-10-12 07:25 | NUR ---
Patient gave student nurse permission to provide care on 10/12/18
--- NOTE | 2018-10-12 17:50 | NUR ---
PT. LYING IN BED. HAS BEEN NPO ALL DAY EXCEPT FOR SIPS AND CHIPS, STILL WAITING FOR EGD. PT. REPORTING PAINFUL BLE EARLIER, FROM ANKLE DOWN SKIN WRINKLED RED AND HOT, ALSO SCALEY. FOOT CRADLE PLACED ON BED AND HEELS FLOATED. NOTIFIED DR. RAO OF THE RED, PAINFUL FEET. NO OTHER NOTEABLE CHANGES
[2018-10-13 05:40] LABS: BASOPHILS ABSOLUTE AUTO 0.04 K/mm3 (0.00-0.23); BASOPHILS PERCENT AUTO 1 % (0-2); EOSINOPHILS ABSOLUTE AUTO 0.16 K/mm3 (0.00-0.68); EOSINOPHILS PERCENT AUTO 4 % (0-6); Hematocrit 29.5 % (37.0-53.0); Hemoglobin 9.4 g/dL (13.5-17.5); IMMATURE GRAN PERCENT AUTO 0 % (0-1); LYMPHOCYTES ABSOLUTE AUTO 1.25 K/mm3 (0.84-5.20); LYMPHOCYTES PERCENT AUTO 28 % (21-46); MONOCYTES ABSOLUTE AUTO 0.42 K/mm3 (0.16-1.47); MONOCYTES PERCENT AUTO 9 % (4-13); Mean Corpuscular HGB 29.5 pg (26.0-34.0); Mean Corpuscular HGB Conc 31.9 g/dL (31.5-36.5); Mean Platelet Volume 8.8 fL (9.1-12.4); NEUTROPHILS ABSOLUTE AUTO 2.61 K/mm3 (1.96-9.15); NEUTROPHILS PERCENT AUTO 58 % (41-73); Platelet Count 221 K/mm3 (150-400); RDW Coefficient Variation 14.8 % (11.7-14.2); RDW Standard Deviation 50.4 fL (35.1-46.3); Red Blood Cell Count 3.19 M/mm3 (4.30-5.90); White Blood Cell Count 4.48 K/mm3 (4.00-11.30)
[2018-10-13 05:46] LABS: Mean Corpuscular Volume 93 fL (80-100)
[2018-10-13 06:02] LABS: Albumin, Blood 2.7 g/dL (3.4-5.0); Anion Gap 11 mmol/L (6-16); Blood Urea Nitrogen 28 mg/dL (8-24); Bun/Creatinine Ratio 16.8 (12.0-20.0); CO2, Blood 23 mmol/L (21-32); Calcium, Blood 8.3 mg/dL (8.5-10.1); Chloride, Blood 102 mmol/L (98-108); Creatinine, Blood 1.67 mg/dL (0.60-1.20); Glomerular Filtration Rate 43 (60-); Glucose, Blood 87 mg/dL (70-99); Phosphorus, Blood 4.2 mg/dL (2.5-4.9); Potassium, Blood 4.2 mmol/L (3.5-5.5); Sodium, Blood 136 mmol/L (136-145)
--- NOTE | 2018-10-13 07:26 | NUR ---
SHIFT SUMMARY: PT REMAINS NPO FOR ENDOSCOPY PROCEDURE. SIPS + CHIPS ONLY. TELE IN PLACE; NSR @ 75 BPM. FOOT CRATAL ACROSS BLE FOR PAIN AND INFLAMMATION. LS DIM, ON 2L VIA NC. INDEPENDENT c URINAL; 1 PER ASSIST c FWW. MEDS CRUSHED IN PUDDING. NO OTHER CHANGES TO REPORT. WILL CONT TO MONITOR AND PROVIDE CARE UNTIL PRESUMED BY ONCOMING RN.
--- NOTE | 2018-10-13 17:33 | NUR ---
SHIFT SUMMARY PT HAD A 11-BEAT RUN OF VTACH PER PCU LANCE CREWMEMBER/MLRS SERGEANT THIS AM. PT WAS ASYMPTOMATIC. PT ALSO HAD VENOUS DUPLEX OF BLE THAT WERE POSITIVE FOR CLOTS. THIS RN NOTIFIED DR. RAO OF BOTH ISSUES. NO NEW ORDERS GIVEN. PT HAS HAD NO COMPLAINTS OF PAIN OR SHORTNESS OF BREATH THIS SHIFT. PT HAS BEEN SLEEPING OFF AND ON THROUGH OUT THE SHIFT. NO ACUTE CHANGES AT THIS TIME. CALL LIGHT IN REACH. WILL CONTINUE TO MONITOR AND REPORT TO ONCOMING RN.
[2018-10-14 05:55] LABS: Albumin, Blood 2.6 g/dL (3.4-5.0); Anion Gap 8 mmol/L (6-16); Blood Urea Nitrogen 31 mg/dL (8-24); Bun/Creatinine Ratio 19.5 (12.0-20.0); CO2, Blood 26 mmol/L (21-32); Calcium, Blood 8.1 mg/dL (8.5-10.1); Chloride, Blood 102 mmol/L (98-108); Creatinine, Blood 1.59 mg/dL (0.60-1.20); Glomerular Filtration Rate 45 (60-); Glucose, Blood 107 mg/dL (70-99); Phosphorus, Blood 3.9 mg/dL (2.5-4.9); Potassium, Blood 4.1 mmol/L (3.5-5.5); Sodium, Blood 136 mmol/L (136-145)
--- NOTE | 2018-10-14 06:49 | NUR ---
SHIFT SUMMARY: NO ACUTE CHANGES TONIGHT. PT IS A&O X 4, 1 PER ASSIST, PLEASANT & COOPERATIVE. TELE IN PLACE; NSR c 1ST DEGREE BLOCK @ 85 bpm. LS DIM T/O, CONT TO TOLERATE ROOM AIR. BLE RED AND PAINFUL TO TOUCH. NO OTHER CHANGES TO REPORT. WILL CONT TO MONITOR AND PROVIDE CARE UNTIL PRESUMED BY ONCOMING RN.
[2018-10-14] MEDS ORDERED: LEVSOD100 PO (12:54)
[2018-10-14] MEDS ORDERED: ATOR40TA PO (12:55)
[2018-10-14] MEDS ORDERED: Isosorbide Mono30 MG PO (12:58)
[2018-10-14] MEDS ORDERED: HYDR10 PO (12:58)
[2018-10-14] MEDS ORDERED: METO25ER PO (12:59)
[2018-10-14] MEDS ORDERED: TAMS.4ER PO (13:00)
[2018-10-14] MEDS ORDERED: XARELTO20 MG PO (13:00)
[2018-10-14] MEDS ORDERED: PANT40 PO (13:01)
[2018-10-14] MEDS ORDERED: TORSE20 PO (13:03)
--- NOTE | 2018-10-14 18:05 | NUR ---
DISCHARGE PT DISCHARGED TO HOME. THIS RN EXPLAINED DISCHARGE INSTRUCITONS AND MEDICATIONS TO PT AND HE REPORTS HE UNDERSTANDS. THIS RN EXPLAINED TO PT WHAT MEDICATIONS WERE TO BE TAKEN THIS EVENING AND PUT MARKERS NEXT TO EACH MEDICATION FOR PT TO KNOW. THIS RN ALSO ENCOURAGED PT TO FOOD CHECKERS AND CASHIERS SUPERVISOR HIS MEDICATIONS FROM THE PHARMACY SO HE COULD BE COMPLIANT WITH MEDICATION PRESCRIPTIONS. IV REMOVED WITHOUT DIFFICULTY. PT TRANSFERRED TO PRIVATE VEHICLE. PT'S BELONGINGS WITH PT.
== END 2018-10-14 17:06 | disposition home health service (06) | DRG 291 ==
LOC: ER 17:16 → MEDS 23:02 → ERHOLD 23:02 → MEDS 10-10 20:17
PROVIDERS: Family Medicine; Nurse Practitioner Acute Care; Physician Assistant; ADMIT Internal Medicine
PROC: 0W993ZZ Drainage of Right Pleural Cavity, Percutaneous Approach (ICD-10-PCS; principal; 2018-10-10)
DX: I13.0 Hypertensive heart and chronic kidney disease with heart failure and stage 1 through stage 4 chronic kidney disease, or unspecified chronic kidney disease (principal); I50.43 Acute on chronic combined systolic (congestive) and diastolic (congestive) heart failure; J96.01 Acute respiratory failure with hypoxia; N17.9 Acute kidney failure, unspecified; I47.1 Supraventricular tachycardia; J91.8 Pleural effusion in other conditions classified elsewhere; N18.3 Chronic kidney disease, stage 3 (moderate); F17.220 Nicotine dependence, chewing tobacco, uncomplicated; I25.10 Atherosclerotic heart disease of native coronary artery without angina pectoris; I48.2 Chronic atrial fibrillation; I42.6 Alcoholic cardiomyopathy; F10.20 Alcohol dependence, uncomplicated; E03.9 Hypothyroidism, unspecified; N40.0 Benign prostatic hyperplasia without lower urinary tract symptoms; M25.561 Pain in right knee; G89.29 Other chronic pain; M54.9 Dorsalgia, unspecified; T50.2X5A Adverse effect of carbonic-anhydrase inhibitors, benzothiadiazides and other diuretics, initial encounter; E78.5 Hyperlipidemia, unspecified; I27.20 Pulmonary hypertension, unspecified; I08.3 Combined rheumatic disorders of mitral, aortic and tricuspid valves; R13.10 Dysphagia, unspecified; K21.9 Gastro-esophageal reflux disease without esophagitis; R11.2 Nausea with vomiting, unspecified; Z91.14 Patient's other noncompliance with medication regimen; Z86.718 Personal history of other venous thrombosis and embolism; Z79.01 Long term (current) use of anticoagulants; Z79.899 Other long term (current) drug therapy; Z88.5 Allergy status to narcotic agent; Z88.8 Allergy status to other drugs, medicaments and biological substances
CPT/HCPCS: 32555; 36415; 71045; 71046; 73562-RT; 74176; 80048; 80053; 80069; 82042; 82945; 83615; 83735; 83880; 84145; 84155; 84157; 84443; 84484; 85025; 85027; 85610; 85730; 87070; 87205; 88108; 89051; 92610; 93005; 93010; 93306; 93970; 96374; 96376; 97110; 97116; 97162; 97165; 97530; 97535; 99285-25; G0480; J1940

== ENCOUNTER → 2019-01-10 | Outpatient (CLI) | payer MEDICARE, OTHER ==
[~2019-01-10] MED LIST changes: +B-1100 MG PO; +HYDR10 PO; +Isosorbide Mono30 MG PO; +LEVSOD100 PO; +LISI5 PO; +METO100 PO; +POTA10T PO; +TORSE20 PO; +XARELTO20 MG PO
[2019-01-10 19:11] LABS: CHOL/HDL RATIO 2.5; Cholesterol 116 mg/dL (50-200); HDL Cholesterol 47 mg/dL (>39); LDL/HDL RATIO 1.1; Low Density Lipoprotein Chol 52 mg/dL (0-110); Triglycerides 86 mg/dL (30-160); Very Low Density Lipoprot Chol 17 mg/dL (6-32)
[2019-01-10 19:16] LABS: Bun/Creatinine Ratio 17.2 (12.0-20.0); Creatinine, Blood 1.8 mg/dL (0.60-1.20)
== END | disposition home or self-care (01) ==
LOC: LAB SHORT 17:57 → LAB 17:57
PROVIDERS: Nurse Practitioner Adult Health; Nurse Practitioner Family
DX: E78.2 Mixed hyperlipidemia (principal); E03.9 Hypothyroidism, unspecified; I25.10 Atherosclerotic heart disease of native coronary artery without angina pectoris; I50.9 Heart failure, unspecified
CPT/HCPCS: 80048; 80061; 83880; 84443

== ENCOUNTER 2019-02-25 16:33 | Emergency (ER) | payer MEDICARE, OTHER ==
[~2019-02-25] VITALS: Ht 172.7 cm; Wt 72.6 kg
[2019-02-25] MEDS ORDERED: Tylenol325 MG PO (19:01)
== END 2019-02-25 19:41 | disposition home or self-care (01) ==
LOC: ER 16:33
DX: S63.502A Unspecified sprain of left wrist, initial encounter (principal); I10 Essential (primary) hypertension; E03.9 Hypothyroidism, unspecified; Z88.5 Allergy status to narcotic agent; Z88.8 Allergy status to other drugs, medicaments and biological substances; Z79.899 Other long term (current) drug therapy; X58.XXXA Exposure to other specified factors, initial encounter
CPT/HCPCS: 73070; 73110; 99283-25

== ENCOUNTER → 2019-03-29 | Outpatient (CLI) | payer MEDICARE, OTHER ==
[~2019-03-29] MED LIST changes: +Tylenol325 MG PO
[2019-03-29 17:15] LABS: BASOPHILS ABSOLUTE AUTO 0.06 K/mm3 (0.00-0.23); BASOPHILS PERCENT AUTO 1 % (0-2); EOSINOPHILS ABSOLUTE AUTO 0.23 K/mm3 (0.00-0.68); EOSINOPHILS PERCENT AUTO 4 % (0-6); Hemoglobin 9.5 g/dL (13.5-17.5); IMMATURE GRAN ABSOLUTE AUTO 0.02 K/mm3 (0.00-0.10); IMMATURE GRAN PERCENT AUTO 0 % (0-1); LYMPHOCYTES ABSOLUTE AUTO 1.34 K/mm3 (0.84-5.20); LYMPHOCYTES PERCENT AUTO 24 % (21-46); MONOCYTES ABSOLUTE AUTO 0.45 K/mm3 (0.16-1.47); MONOCYTES PERCENT AUTO 8 % (4-13); Mean Corpuscular HGB 27.5 pg (26.0-34.0); Mean Corpuscular HGB Conc 31.7 g/dL (31.5-36.5); Mean Corpuscular Volume 87 fL (80-100); Mean Platelet Volume 9.2 fL (9.1-12.4); NEUTROPHILS ABSOLUTE AUTO 3.55 K/mm3 (1.96-9.15); NEUTROPHILS PERCENT AUTO 63 % (41-73); Platelet Count 240 K/mm3 (150-400); RDW Coefficient Variation 18.3 % (11.7-14.2); RDW Standard Deviation 54.6 fL (35.1-46.3); Red Blood Cell Count 3.45 M/mm3 (4.30-5.90); White Blood Cell Count 5.65 K/mm3 (4.00-11.30)
[2019-03-29 17:37] LABS: Percent Saturation 16.6 % (20.0-50.0)
[2019-03-29 17:38] LABS: Albumin, Blood 3.3 g/dL (3.4-5.0); Albumin/Globulin Ratio 0.8 (0.8-1.8); Bilirubin, Total 1.7 mg/dL (0.1-1.0); Bun/Creatinine Ratio 16.6 (12.0-20.0); Calcium, Blood 8.5 mg/dL (8.5-10.1); Creatinine, Blood 1.51 mg/dL (0.60-1.20); Globulin, Blood 4.3 g/dL (2.2-4.0); Potassium, Blood 3.9 mmol/L (3.5-5.5); Total Protein, Blood 7.6 g/dL (6.4-8.2)
== END | disposition home or self-care (01) ==
LOC: LAB 17:05 → LAB SHORT 17:05
PROVIDERS: Nurse Practitioner Family
DX: E83.51 Hypocalcemia (principal); D50.9 Iron deficiency anemia, unspecified
CPT/HCPCS: 80053; 82728; 83540; 83550; 85025

== ENCOUNTER → 2019-08-18 | Outpatient (CLI) | payer MEDICARE, OTHER ==
[2019-08-18 17:26] LABS: Albumin, Blood 3.4 g/dL (3.4-5.0); Anion Gap 9 mmol/L (6-16); Blood Urea Nitrogen 41 mg/dL (8-24); Bun/Creatinine Ratio 16.5 (12.0-20.0); CO2, Blood 24 mmol/L (21-32); Calcium, Blood 8.7 mg/dL (8.5-10.1); Chloride, Blood 106 mmol/L (98-108); Creatinine, Blood 2.49 mg/dL (0.60-1.20); Glomerular Filtration Rate 27 (60-); Glucose, Blood 101 mg/dL (70-99); Phosphorus, Blood 4.6 mg/dL (2.5-4.9); Potassium, Blood 3.8 mmol/L (3.5-5.5); Sodium, Blood 139 mmol/L (136-145)
== END | disposition home or self-care (01) ==
LOC: LAB SHORT 11:50 → LAB 11:50
PROVIDERS: Internal Medicine
DX: N18.3 Chronic kidney disease, stage 3 (moderate) (principal)
CPT/HCPCS: 80069

== ENCOUNTER → 2019-10-09 | Outpatient (CLI) | payer MEDICARE, OTHER ==
[2019-10-09 16:17] LABS: Source, Urine Clean Catch
[2019-10-09 17:55] LABS: BASOPHILS ABSOLUTE AUTO 0.05 K/mm3 (0.00-0.23); BASOPHILS PERCENT AUTO 1 % (0-2); EOSINOPHILS ABSOLUTE AUTO 0.11 K/mm3 (0.00-0.68); EOSINOPHILS PERCENT AUTO 2 % (0-6); Hematocrit 29.9 % (37.0-53.0); Hemoglobin 9.1 g/dL (13.5-17.5); IMMATURE GRAN ABSOLUTE AUTO 0.08 K/mm3 (0.00-0.10); IMMATURE GRAN PERCENT AUTO 2 % (0-1); LYMPHOCYTES ABSOLUTE AUTO 1.06 K/mm3 (0.84-5.20); LYMPHOCYTES PERCENT AUTO 22 % (21-46); MONOCYTES ABSOLUTE AUTO 0.36 K/mm3 (0.16-1.47); MONOCYTES PERCENT AUTO 7 % (4-13); Mean Corpuscular HGB 27.4 pg (26.0-34.0); Mean Corpuscular HGB Conc 30.4 g/dL (31.5-36.5); Mean Corpuscular Volume 90 fL (80-100); NEUTROPHILS ABSOLUTE AUTO 3.23 K/mm3 (1.96-9.15); NEUTROPHILS PERCENT AUTO 66 % (41-73); Platelet Count 199 K/mm3 (150-400); RDW Coefficient Variation 16.1 % (11.7-14.2); Red Blood Cell Count 3.32 M/mm3 (4.30-5.90); White Blood Cell Count 4.89 K/mm3 (4.00-11.30)
[2019-10-09 18:10] LABS: Bacteria Few /hpf; Hyaline Casts 0-2 /lpf (0-2); Red Blood Cells, Urine 0-2 /hpf (0-2); Squamous Epithelial Cells Few /hpf (Few)
[2019-10-09 18:14] LABS: Free Thyroxine 1.13 ng/dL (0.70-1.60)
[2019-10-09 18:20] LABS: Albumin, Blood 3.4 g/dL (3.4-5.0); Albumin/Globulin Ratio 0.8 (0.8-1.8); Bilirubin, Total 0.8 mg/dL (0.1-1.0); Bun/Creatinine Ratio 16.1 (12.0-20.0); Calcium, Blood 8.5 mg/dL (8.5-10.1); Creatinine, Blood 2.3 mg/dL (0.60-1.20); Globulin, Blood 4.4 g/dL (2.2-4.0); Potassium, Blood 3.7 mmol/L (3.5-5.5); Thyroid Stimulating Hormone 5.39 uIU/mL (0.360-4.800); Total Protein, Blood 7.8 g/dL (6.4-8.2)
[2019-10-10 11:01] LABS: Bilirubin, Urine Neg (Neg); Blood, Urine Neg (Neg); Glucose Qualitative, Urine Neg (Neg); Ketones, Urine Neg (Neg); Leukocyte Esterase, Urine Neg (Neg); Nitrite, Urine Neg (Neg); Protein, Urine Neg (Neg); Specific Gravity, Urine 1.015 (1.003-1.022); Urobilinogen, Urine NORM (Normal)
[2019-10-10 11:07] LABS: Appearance, Urine Clear (Clear); Color, Urine Yellow (P-Yellow)
[2019-10-10 11:36] LABS: Protein, Urine Random 16.3 mg/dL (0.0-11.9)
== END | disposition home or self-care (01) ==
LOC: LAB SHORT 16:14 → LAB 16:14
PROVIDERS: Nurse Practitioner Family
DX: E03.9 Hypothyroidism, unspecified (principal); N18.3 Chronic kidney disease, stage 3 (moderate); D63.1 Anemia in chronic kidney disease; D50.9 Iron deficiency anemia, unspecified
CPT/HCPCS: 80053; 81003; 81015; 82570; 82728; 83540; 83550; 84156; 84439; 84443; 85025; 87086

== ENCOUNTER → 2019-11-21 | Outpatient (CLI) | payer MEDICARE, OTHER ==
[2019-11-21 10:52] LABS: BASOPHILS ABSOLUTE AUTO 0.06 K/mm3 (0.00-0.23); BASOPHILS PERCENT AUTO 1 % (0-2); EOSINOPHILS ABSOLUTE AUTO 0.11 K/mm3 (0.00-0.68); EOSINOPHILS PERCENT AUTO 3 % (0-6); Hematocrit 27.6 % (37.0-53.0); Hemoglobin 8.4 g/dL (13.5-17.5); IMMATURE GRAN ABSOLUTE AUTO 0.01 K/mm3 (0.00-0.10); IMMATURE GRAN PERCENT AUTO 0 % (0-1); LYMPHOCYTES ABSOLUTE AUTO 0.99 K/mm3 (0.84-5.20); LYMPHOCYTES PERCENT AUTO 23 % (21-46); MONOCYTES PERCENT AUTO 7 % (4-13); Mean Corpuscular HGB 27.6 pg (26.0-34.0); Mean Corpuscular HGB Conc 30.4 g/dL (31.5-36.5); Mean Corpuscular Volume 91 fL (80-100); Mean Platelet Volume 8.7 fL (9.1-12.4); NEUTROPHILS ABSOLUTE AUTO 2.85 K/mm3 (1.96-9.15); NEUTROPHILS PERCENT AUTO 66 % (41-73); Platelet Count 251 K/mm3 (150-400); RDW Coefficient Variation 15.9 % (11.7-14.2); Red Blood Cell Count 3.04 M/mm3 (4.30-5.90); White Blood Cell Count 4.32 K/mm3 (4.00-11.30)
[2019-11-21 11:07] LABS: Albumin, Blood 3.5 g/dL (3.4-5.0); Anion Gap 10 mmol/L (6-16); Blood Urea Nitrogen 47 mg/dL (8-24); Bun/Creatinine Ratio 12.8 (12.0-20.0); CO2, Blood 22 mmol/L (21-32); Calcium, Blood 8.7 mg/dL (8.5-10.1); Chloride, Blood 104 mmol/L (98-108); Creatinine, Blood 3.68 mg/dL (0.60-1.20); Glomerular Filtration Rate 17 (60-); Glucose, Blood 92 mg/dL (70-99); Magnesium, Blood 2.4 mg/dL (1.6-2.4); Phosphorus, Blood 4.6 mg/dL (2.5-4.9); Potassium, Blood 4.3 mmol/L (3.5-5.5); Sodium, Blood 136 mmol/L (136-145)
[2019-11-21 17:04] LABS: Percent Saturation 12.1 % (20.0-50.0)
== END | disposition home or self-care (01) ==
LOC: OLS 09:09 → LAB SHORT 09:09 → LAB FUT 10-09 11:05
PROVIDERS: Internal Medicine; Nurse Practitioner Family
DX: E87.6 Hypokalemia (principal); N18.3 Chronic kidney disease, stage 3 (moderate); D63.1 Anemia in chronic kidney disease
CPT/HCPCS: 36415; 80069; 82728; 83540; 83550; 83735; 85025

== ENCOUNTER → 2019-12-08 | Outpatient (CLI) | payer MEDICARE, OTHER ==
[2019-12-11 14:11] LABS: Stool Occult Blood Guaiac 1 Pos (Neg)
== END ==
LOC: LAB 20:00 → LAB SHORT 20:00
PROVIDERS: Internal Medicine
DX: D64.9 Anemia, unspecified (principal); E87.6 Hypokalemia
CPT/HCPCS: 82270

== ENCOUNTER → 2019-12-12 | Outpatient (CLI) | payer MEDICARE, OTHER ==
[2019-12-12 19:52] LABS: BASOPHILS ABSOLUTE AUTO 0.05 K/mm3 (0.00-0.23); BASOPHILS PERCENT AUTO 1 % (0-2); EOSINOPHILS ABSOLUTE AUTO 0.14 K/mm3 (0.00-0.68); EOSINOPHILS PERCENT AUTO 3 % (0-6); Hematocrit 30.8 % (37.0-53.0); Hemoglobin 9.2 g/dL (13.5-17.5); IMMATURE GRAN ABSOLUTE AUTO 0.01 K/mm3 (0.00-0.10); IMMATURE GRAN PERCENT AUTO 0 % (0-1); LYMPHOCYTES ABSOLUTE AUTO 1.09 K/mm3 (0.84-5.20); LYMPHOCYTES PERCENT AUTO 22 % (21-46); MONOCYTES ABSOLUTE AUTO 0.37 K/mm3 (0.16-1.47); MONOCYTES PERCENT AUTO 8 % (4-13); Mean Corpuscular HGB 27.4 pg (26.0-34.0); Mean Corpuscular HGB Conc 29.9 g/dL (31.5-36.5); Mean Corpuscular Volume 92 fL (80-100); Mean Platelet Volume 8.7 fL (9.1-12.4); NEUTROPHILS ABSOLUTE AUTO 3.25 K/mm3 (1.96-9.15); NEUTROPHILS PERCENT AUTO 66 % (41-73); Platelet Count 278 K/mm3 (150-400); RDW Standard Deviation 56.2 fL (35.1-46.3); Red Blood Cell Count 3.36 M/mm3 (4.30-5.90); White Blood Cell Count 4.91 K/mm3 (4.00-11.30)
[2019-12-12 21:05] LABS: Bun/Creatinine Ratio 24.8 (12.0-20.0); Calcium, Blood 8.5 mg/dL (8.5-10.1); Creatinine, Blood 2.26 mg/dL (0.60-1.20); Potassium, Blood 4.3 mmol/L (3.5-5.5)
== END | disposition home or self-care (01) ==
LOC: LAB 17:23 → LAB SHORT 17:23
PROVIDERS: Nurse Practitioner Family
DX: N18.9 Chronic kidney disease, unspecified (principal); D63.1 Anemia in chronic kidney disease
CPT/HCPCS: 80048; 85025

== ENCOUNTER → 2019-12-13 | Outpatient (CLI) | payer MEDICARE, OTHER ==
[2019-12-15 14:53] LABS: Stool Occult Blood Guaiac 1 Neg (Neg)
== END | disposition home or self-care (01) ==
LOC: LAB SHORT 15:00 → LAB 15:00
PROVIDERS: Nurse Practitioner Family
DX: D64.9 Anemia, unspecified (principal)
CPT/HCPCS: 82270

== ENCOUNTER → 2020-01-24 | Outpatient (CLI) | payer MEDICARE, OTHER ==
[2020-01-24 17:25] LABS: Hematocrit 25.9 % (37.0-53.0); Hemoglobin 7.8 g/dL (13.5-17.5)
[2020-01-24 17:48] LABS: Percent Saturation 7.2 % (20.0-50.0)
[2020-01-24 19:30] LABS: Albumin, Blood 3.3 g/dL (3.4-5.0); Anion Gap 7 mmol/L (6-16); Blood Urea Nitrogen 37 mg/dL (8-24); CO2, Blood 23 mmol/L (21-32); Calcium, Blood 8.3 mg/dL (8.5-10.1); Chloride, Blood 107 mmol/L (98-108); Creatinine, Blood 2.05 mg/dL (0.60-1.20); Glomerular Filtration Rate 34 (60-); Glucose, Blood 96 mg/dL (70-99); Phosphorus, Blood 3.8 mg/dL (2.5-4.9); Potassium, Blood 3.9 mmol/L (3.5-5.5); Sodium, Blood 137 mmol/L (136-145)
== END | disposition home or self-care (01) ==
LOC: LAB 15:42 → LAB SHORT 15:42
PROVIDERS: Nurse Practitioner Family
DX: N18.3 Chronic kidney disease, stage 3 (moderate) (principal); D63.1 Anemia in chronic kidney disease; D50.9 Iron deficiency anemia, unspecified
CPT/HCPCS: 80069; 82728; 83540; 83550; 85014; 85018

== ENCOUNTER → 2020-04-01 | Outpatient (CLI) | payer MEDICARE, OTHER ==
[2020-04-01 20:02] LABS: Hematocrit 24.9 % (37.0-53.0); Hemoglobin 7.7 g/dL (13.5-17.5)
[2020-04-01 20:39] LABS: Albumin, Blood 3.2 g/dL (3.4-5.0); Anion Gap 12 mmol/L (6-16); Blood Urea Nitrogen 78 mg/dL (8-24); Bun/Creatinine Ratio 31.1 (12.0-20.0); CO2, Blood 24 mmol/L (21-32); Calcium, Blood 8.2 mg/dL (8.5-10.1); Chloride, Blood 99 mmol/L (98-108); Creatinine, Blood 2.51 mg/dL (0.60-1.20); Glomerular Filtration Rate 27 (60-); Glucose, Blood 90 mg/dL (70-99); Magnesium, Blood 2.6 mg/dL (1.6-2.4); Potassium, Blood 3.4 mmol/L (3.5-5.5); Sodium, Blood 135 mmol/L (136-145)
== END | disposition home or self-care (01) ==
LOC: LAB 17:11 → LAB SHORT 17:11
PROVIDERS: Nurse Practitioner Family
DX: N18.9 Chronic kidney disease, unspecified (principal); D63.1 Anemia in chronic kidney disease
CPT/HCPCS: 80069; 83735; 85014; 85018

== ENCOUNTER 2020-04-23 11:02 | Inpatient (IN) | payer MEDICARE, OTHER ==
[~2020-04-23] VITALS: Ht 172.7 cm; Wt 71.0 kg
[2020-04-23 11:51] LABS: BASOPHILS ABSOLUTE AUTO 0.08 K/mm3 (0.00-0.23); BASOPHILS PERCENT AUTO 1 % (0-2); EOSINOPHILS ABSOLUTE AUTO 0.06 K/mm3 (0.00-0.68); EOSINOPHILS PERCENT AUTO 1 % (0-6); Hematocrit 26.7 % (37.0-53.0); Hemoglobin 8.3 g/dL (13.5-17.5); IMMATURE GRAN ABSOLUTE AUTO 0.04 K/mm3 (0.00-0.10); IMMATURE GRAN PERCENT AUTO 0 % (0-1); LYMPHOCYTES ABSOLUTE AUTO 1.01 K/mm3 (0.84-5.20); LYMPHOCYTES PERCENT AUTO 9 % (21-46); MONOCYTES ABSOLUTE AUTO 0.64 K/mm3 (0.16-1.47); MONOCYTES PERCENT AUTO 6 % (4-13); Mean Corpuscular HGB 29.6 pg (26.0-34.0); Mean Corpuscular HGB Conc 31.1 g/dL (31.5-36.5); Mean Corpuscular Volume 95 fL (80-100); Mean Platelet Volume 8.1 fL (9.1-12.4); NEUTROPHILS ABSOLUTE AUTO 8.96 K/mm3 (1.96-9.15); NEUTROPHILS PERCENT AUTO 83 % (41-73); Platelet Count 287 K/mm3 (150-400); RDW Coefficient Variation 17.1 % (11.7-14.2); RDW Standard Deviation 61.1 fL (35.1-46.3); White Blood Cell Count 10.79 K/mm3 (4.00-11.30)
[2020-04-23] MEDS ORDERED: HYDR10 PO (12:02)
[2020-04-23] MEDS ORDERED: Isosorbide Mono30 MG PO (12:02)
[2020-04-23] MEDS ORDERED: METO5 PO (12:03)
[2020-04-23 12:06] LABS: Albumin, Blood 3.3 g/dL (3.4-5.0); Albumin/Globulin Ratio 0.7 (0.8-1.8); Bilirubin, Total 0.5 mg/dL (0.1-1.0); Bun/Creatinine Ratio 28.6 (12.0-20.0); Calcium, Blood 8.6 mg/dL (8.5-10.1); Creatinine, Blood 2.48 mg/dL (0.60-1.20); Globulin, Blood 4.9 g/dL (2.2-4.0); Potassium, Blood 4.5 mmol/L (3.5-5.5); Total Protein, Blood 8.2 g/dL (6.4-8.2)
[2020-04-23 16:31] LABS: Magnesium, Blood 2.6 mg/dL (1.6-2.4); Troponin I 0.045 ng/mL (0.000-0.040)
[2020-04-23 16:37] LABS: International Normalized Ratio 1.11; Prothrombin Time Results 11.8 Sec (9.7-11.5)
[2020-04-23] MEDS ORDERED: TORSE20 PO (17:47)
[2020-04-23] MEDS ORDERED: ISOSORBIDE MONO30 MG PO (17:47)
[2020-04-24 03:06] LABS: BASOPHILS ABSOLUTE AUTO 0.05 K/mm3 (0.00-0.23); BASOPHILS PERCENT AUTO 1 % (0-2); EOSINOPHILS ABSOLUTE AUTO 0.03 K/mm3 (0.00-0.68); EOSINOPHILS PERCENT AUTO 0 % (0-6); Hematocrit 25.8 % (37.0-53.0); Hemoglobin 7.9 g/dL (13.5-17.5); IMMATURE GRAN ABSOLUTE AUTO 0.03 K/mm3 (0.00-0.10); IMMATURE GRAN PERCENT AUTO 0 % (0-1); LYMPHOCYTES ABSOLUTE AUTO 1.09 K/mm3 (0.84-5.20); LYMPHOCYTES PERCENT AUTO 13 % (21-46); MONOCYTES ABSOLUTE AUTO 0.68 K/mm3 (0.16-1.47); MONOCYTES PERCENT AUTO 8 % (4-13); Mean Corpuscular HGB 29.8 pg (26.0-34.0); Mean Corpuscular HGB Conc 30.6 g/dL (31.5-36.5); Mean Corpuscular Volume 97 fL (80-100); Mean Platelet Volume 8.2 fL (9.1-12.4); NEUTROPHILS ABSOLUTE AUTO 6.55 K/mm3 (1.96-9.15); NEUTROPHILS PERCENT AUTO 78 % (41-73); Platelet Count 259 K/mm3 (150-400); RDW Coefficient Variation 17.2 % (11.7-14.2); RDW Standard Deviation 61.6 fL (35.1-46.3); Red Blood Cell Count 2.65 M/mm3 (4.30-5.90); White Blood Cell Count 8.43 K/mm3 (4.00-11.30)
[2020-04-24 03:23] LABS: Albumin, Blood 2.9 g/dL (3.4-5.0); Albumin/Globulin Ratio 0.7 (0.8-1.8); Bilirubin, Total 0.6 mg/dL (0.1-1.0); Bun/Creatinine Ratio 28.5 (12.0-20.0); Calcium, Blood 8.2 mg/dL (8.5-10.1); Creatinine, Blood 2.49 mg/dL (0.60-1.20); Globulin, Blood 4.4 g/dL (2.2-4.0); Total Protein, Blood 7.3 g/dL (6.4-8.2)
--- NOTE | 2020-04-24 04:47 | NUR ---
shift summary: vss, no acute changes, pt remained a/0 x 4, cooperative. pt remains painful in l ribs/shoulder, l knee; medicated per mar with rated pain at 5/10 following medication per mar. pt tolerating PO intake with no n/v, using urinal, continent, BM x 1 using bedside commode, stand and pivot well with standby assist; attends in place. pt has slurred speech but intelligable and oriented. pt is unable to recall his current medications. reported critical troponin with AM medications, reported to dr Cummins, no new orders, pt asymptomatic. lungs: coarse, diminished, productive cough yellow sputum
--- NOTE | 2020-04-24 07:49 | NUR ---
HOSPITALIST HERE TO SEE PT. DR REPORTS HAVING NO CHEST PAIN. PT REPORTS SIDE HURTS WHERE HIS RIBS ARE.
--- NOTE | 2020-04-24 08:14 | NUR ---
DR ZEPEDA CALLED, REPORTED THAT TROPONIN MAY BE DRAWN NOW WITH OTHER LABS.
--- NOTE | 2020-04-24 08:19 | NUR ---
DR ZEPEDA (HOSPITALIST) BACK AGAIN TO SEE PT. REPORTS TO GIVE ASA, START HEPARIN. REPORTS MAY EAT, SEE ORDERS.
--- NOTE | 2020-04-24 08:47 | NUR ---
DR SMITH HERE TO SEE PT.
--- NOTE | 2020-04-24 09:19 | NUR ---
PT REPORTS MAY TALK WITH DAUGHTER OR .
--- NOTE | 2020-04-24 09:42 | NUR ---
ECHO BEING COMPLETED.
--- NOTE | 2020-04-24 09:56 | NUR ---
MECHANICAL SUPERVISOR NOTIFIED THIS RN OF CRITICAL LAB VALUE TROPONIN. DR ZEPEDA NOTIFED. DISCUSSED PT'S STATUS, NO CP. ASSYMPTOMATIC. PT ALERT/ORIENTED. DENIES ANY CONCERNS. DR REPORTS OK TO GIVE BOLUS OF HEPARIN AND START DRIP. DR REPORTS TO HOLD POTASSIUM THIS AM.
[2020-04-24 11:17] LABS: BASOPHILS ABSOLUTE AUTO 0.06 K/mm3 (0.00-0.23); BASOPHILS PERCENT AUTO 1 % (0-2); EOSINOPHILS ABSOLUTE AUTO 0.16 K/mm3 (0.00-0.68); EOSINOPHILS PERCENT AUTO 2 % (0-6); Hematocrit 24.2 % (37.0-53.0); Hemoglobin 7.4 g/dL (13.5-17.5); IMMATURE GRAN ABSOLUTE AUTO 0.01 K/mm3 (0.00-0.10); IMMATURE GRAN PERCENT AUTO 0 % (0-1); LYMPHOCYTES ABSOLUTE AUTO 1.03 K/mm3 (0.84-5.20); LYMPHOCYTES PERCENT AUTO 13 % (21-46); MONOCYTES ABSOLUTE AUTO 0.65 K/mm3 (0.16-1.47); MONOCYTES PERCENT AUTO 8 % (4-13); Mean Corpuscular HGB 29.5 pg (26.0-34.0); Mean Corpuscular HGB Conc 30.6 g/dL (31.5-36.5); Mean Corpuscular Volume 96 fL (80-100); Mean Platelet Volume 8.6 fL (9.1-12.4); NEUTROPHILS PERCENT AUTO 76 % (41-73); Platelet Count 259 K/mm3 (150-400); RDW Coefficient Variation 17.1 % (11.7-14.2); RDW Standard Deviation 60.3 fL (35.1-46.3); Red Blood Cell Count 2.51 M/mm3 (4.30-5.90); White Blood Cell Count 8.01 K/mm3 (4.00-11.30)
--- NOTE | 2020-04-24 11:43 | NUR ---
DR ZEPEDA CALLED, GIVEN EKG READING. SHE REPORTS SHE WILL CALL DR AGUIAR REGARDING CARDIOLOGY CONSULT WELL PT'S DAUGHTER.
--- NOTE | 2020-04-24 12:17 | NUR ---
DR ZEPEDA HERE TO SEE PT, REPORTS TO STOP HEPARIN. HEPARIN STOPPED. DR REPORTS CARDIOLOGY DR WILL COME SEE PT.
--- NOTE | 2020-04-24 12:54 | NUR ---
Echocardiogram completed.
--- NOTE | 2020-04-24 14:06 | NUR ---
DR ZEPEDA NOTIFIED OF PT'S TROPONIN, WELL PT I/O. DR REPORT TO CONT TO MONITOR.
[2020-04-24 15:23] LABS: Hematocrit 26.2 % (37.0-53.0); Hemoglobin 7.9 g/dL (13.5-17.5)
--- NOTE | 2020-04-24 16:42 | NUR ---
DR AGUIAR RECENTLY TO ROOM TO SEE PT.
--- NOTE | 2020-04-24 18:25 | NUR ---
SHIFT SUMMARY PT BEEN EATING AND DRINKING. PT CONT TO DENY ANY CP. PT HAS CONT BIOX IN PLACE. MULT DR BEEN TO SEE PT WELL REPORTED TALKING TO PT'S DAUGHTER. PT BEEN PLEASANT AND COOPERATIVE. NO SIGNS/SYMPTOMS OF W/D NOTED. PAS IN PLACE. SEIZURE PADS IN PLACE. IVF INFUSING. PT ON TELE. CARDIOLOGY ALSO BEEN TO SEE PT AND TALKED WITH PT'S DAUGHTER PER DR AGUIAR. PT TO BE NPO AFTER MIDNIGHT. DR'S AWARE OF PT'S I/O AND HIM NOT HAVING A BM TODAY.
--- NOTE | 2020-04-25 04:27 | NUR ---
SHIFT SUMMARY PT A/OX4 WITH VSS. 2X DURING SHIFT PT WENT INTO SVT IN 130'S WITH PVC'S AND ABERRENT CONDUCTION, PER DIRECTOR PUBLIC POLICY. PT ASYPMTOMATIC, DENIED ANY CHEST DISCOMFORT OR S/SX BOTH TIMES. DISCUSSED WITH CC. HAS BEEN NSR WITH HR IN 80-90'S OTHERWISE. WILL CONT TO MONITOR PT AND RHYTHM STRIP CLOSELY. DENIED NEED FOR PAIN MEDICATION T/O SHIFT. REPOSTIONED PT CALVIN, IS ABLE TO REPOSITION SELF SOME. IS NPO. IVF INFUSING PER ORDERS. NO S/SX OF ETOH W/DRAWAL. AWAITING STOOL SAMPLE. WILL CONT TO MONITOR AND GIVE REPORT TO ONCOMING RN.
--- NOTE | 2020-04-25 05:11 | NUR ---
PT MEDICATED FOR PAIN AT THIS TIME.
--- NOTE | 2020-04-25 07:20 | NUR ---
PER TELE PT SINUS WITH PVC'S AT 97.
[2020-04-25 08:20] LABS: BASOPHILS ABSOLUTE AUTO 0.04 K/mm3 (0.00-0.23); BASOPHILS PERCENT AUTO 1 % (0-2); EOSINOPHILS ABSOLUTE AUTO 0.17 K/mm3 (0.00-0.68); EOSINOPHILS PERCENT AUTO 3 % (0-6); Hematocrit 23.1 % (37.0-53.0); Hemoglobin 7.1 g/dL (13.5-17.5); IMMATURE GRAN ABSOLUTE AUTO 0.02 K/mm3 (0.00-0.10); IMMATURE GRAN PERCENT AUTO 0 % (0-1); LYMPHOCYTES ABSOLUTE AUTO 0.85 K/mm3 (0.84-5.20); LYMPHOCYTES PERCENT AUTO 14 % (21-46); MONOCYTES ABSOLUTE AUTO 0.55 K/mm3 (0.16-1.47); MONOCYTES PERCENT AUTO 9 % (4-13); Mean Corpuscular HGB 29.7 pg (26.0-34.0); Mean Corpuscular HGB Conc 30.7 g/dL (31.5-36.5); Mean Corpuscular Volume 97 fL (80-100); Mean Platelet Volume 8.3 fL (9.1-12.4); NEUTROPHILS ABSOLUTE AUTO 4.31 K/mm3 (1.96-9.15); NEUTROPHILS PERCENT AUTO 73 % (41-73); Platelet Count 217 K/mm3 (150-400); RDW Standard Deviation 61.6 fL (35.1-46.3); Red Blood Cell Count 2.39 M/mm3 (4.30-5.90); White Blood Cell Count 5.94 K/mm3 (4.00-11.30)
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
--- NOTE | 2020-04-25 09:01 | NUR ---
PT S.L. GIVEN ICE WATER AND LEMONADE PER PT REQ. FAMILY/FRIEND HERE TO SEE PT. DR REPORTS PT MAY WORK WITH THERAPY TODAY. THERAPY NOTIFIED. HEELS FLOATED WITH PILLOW.
[2020-04-25 14:40] LABS: Hemoglobin 7.7 g/dL (13.5-17.5)
--- NOTE | 2020-04-25 16:50 | NUR ---
SHIFT SUMMARY PT EATING AND DRINKING, VOIDING BETTER TODAY. PT BEEN ASSISTED WITH ADL'S PRN. PT H+H UP SLIGHTLY THIS AFTERNOON THAN THIS AM. PT WORKED WITH THERAPY TODAY WHICH WAS OK'D BY DR KAUR. PT WAS UP TO CHAIR. PT BEEN PLEASANT AND COOPERATIVE TODAY. PT TO BE NPO AFTER MIDNIGHT. CALL LIGHT IN REACH. BED ALARM IN PLACE. PT DRINKING WELL TODAY.
[2020-04-26 04:52] LABS: BASOPHILS ABSOLUTE AUTO 0.04 K/mm3 (0.00-0.23); BASOPHILS PERCENT AUTO 1 % (0-2); EOSINOPHILS ABSOLUTE AUTO 0.24 K/mm3 (0.00-0.68); EOSINOPHILS PERCENT AUTO 4 % (0-6); Hematocrit 23.5 % (37.0-53.0); Hemoglobin 7.1 g/dL (13.5-17.5); IMMATURE GRAN ABSOLUTE AUTO 0.02 K/mm3 (0.00-0.10); IMMATURE GRAN PERCENT AUTO 0 % (0-1); LYMPHOCYTES ABSOLUTE AUTO 0.83 K/mm3 (0.84-5.20); LYMPHOCYTES PERCENT AUTO 15 % (21-46); MONOCYTES ABSOLUTE AUTO 0.51 K/mm3 (0.16-1.47); MONOCYTES PERCENT AUTO 9 % (4-13); Mean Corpuscular HGB 29.1 pg (26.0-34.0); Mean Corpuscular HGB Conc 30.2 g/dL (31.5-36.5); Mean Corpuscular Volume 96 fL (80-100); Mean Platelet Volume 8.4 fL (9.1-12.4); NEUTROPHILS ABSOLUTE AUTO 3.76 K/mm3 (1.96-9.15); NEUTROPHILS PERCENT AUTO 70 % (41-73); Platelet Count 227 K/mm3 (150-400); RDW Coefficient Variation 16.7 % (11.7-14.2); RDW Standard Deviation 59.2 fL (35.1-46.3); Red Blood Cell Count 2.44 M/mm3 (4.30-5.90)
[2020-04-26 05:11] LABS: Bun/Creatinine Ratio 21.3 (12.0-20.0); Calcium, Blood 8.4 mg/dL (8.5-10.1); Creatinine, Blood 2.77 mg/dL (0.60-1.20); Potassium, Blood 3.7 mmol/L (3.5-5.5)
--- NOTE | 2020-04-26 06:21 | NUR ---
PATIENT IS AWAKE AND ALERT. NO COMPLAINTS OF PAIN UNLESS HE IS COUGHING OR MOVING. NO ACUTE DISTRESS TODAY. HE IS NOT HAVING SOB. HE IS HAVING WEAPING FROM A HEALING CELLULITIS ON HIS RT CALF. PATIENT STATED THAT IS HAS BEEN GETTING BETTER. CALL LIGHT IN PLACE.
--- NOTE | 2020-04-26 07:46 | NUR ---
pt resting wakes to verbal stimuli stated pain is 5/10 laying in bed asked when his thoracentesis is sched will call after 0800 to us to find out no sob at rest but has with acitivity
--- NOTE | 2020-04-26 08:25 | NUR ---
fent 25 mcg given for pain pt to transfer via gurney to us for thoracentesis
--- NOTE | 2020-04-26 09:56 | NUR ---
pt sitting up in chair eating breakfast meds given as sched
[2020-04-26 10:23] LABS: Automated BF RBC Count 0.002 M/mm3 (0-0); Body Fluid WBC Count 120 /mm3 (0-999)
[2020-04-26 10:42] LABS: Protein, Body Fluid 3.3 g/dL
[2020-04-26 11:03] LABS: Appearance, Body Fluid Hazy (Clear); Color, Body Fluid L Yellow (None-Yellow); Total Cell Count, Body Fluid 100
[2020-04-26 11:12] LABS: Albumin, Body Fluid 1.6 g/dL; Glucose, Body Fluid 92 mg/dL; Lactate Dehydrogenase, Body Fl 136 U/L
--- NOTE | 2020-04-26 12:05 | NUR ---
pt req pain meds fent 25 mcq given pt stated to full from late breakfast
--- NOTE | 2020-04-26 13:50 | NUR ---
pt sitting on edge of the bed meds given as sched
[2020-04-26 14:01] LABS: Stool Occult Bld Immuno 1 Positive (NEGATIVE)
--- NOTE | 2020-04-26 15:29 | NUR ---
pt reporting a h/a called and left a mess for hosp
--- NOTE | 2020-04-26 16:54 | NUR ---
by to see pt discussed pt's h/a pt also started to get a cramp just prior to the dr coming asked her to call and update pt's daughter
[2020-04-26 17:16] LABS: BASOPHILS ABSOLUTE AUTO 0.04 K/mm3 (0.00-0.23); BASOPHILS PERCENT AUTO 1 % (0-2); EOSINOPHILS ABSOLUTE AUTO 0.19 K/mm3 (0.00-0.68); EOSINOPHILS PERCENT AUTO 4 % (0-6); Hematocrit 26.5 % (37.0-53.0); Hemoglobin 7.9 g/dL (13.5-17.5); IMMATURE GRAN ABSOLUTE AUTO 0.02 K/mm3 (0.00-0.10); IMMATURE GRAN PERCENT AUTO 0 % (0-1); LYMPHOCYTES ABSOLUTE AUTO 0.78 K/mm3 (0.84-5.20); LYMPHOCYTES PERCENT AUTO 15 % (21-46); MONOCYTES ABSOLUTE AUTO 0.42 K/mm3 (0.16-1.47); MONOCYTES PERCENT AUTO 8 % (4-13); Mean Corpuscular HGB Conc 29.8 g/dL (31.5-36.5); Mean Corpuscular Volume 97 fL (80-100); Mean Platelet Volume 8.3 fL (9.1-12.4); NEUTROPHILS ABSOLUTE AUTO 3.71 K/mm3 (1.96-9.15); NEUTROPHILS PERCENT AUTO 72 % (41-73); Platelet Count 251 K/mm3 (150-400); RDW Standard Deviation 59.6 fL (35.1-46.3); Red Blood Cell Count 2.72 M/mm3 (4.30-5.90); White Blood Cell Count 5.16 K/mm3 (4.00-11.30)
--- NOTE | 2020-04-26 22:39 | NUR ---
PT HAD 10 SECOND RUN OF V TACH, STABLE NOW W/ REPORT OF SR @ 85 PER CHROME CLEANER MollyWatr. HOSPITALIST [facility]RA NOTIFIED.
[2020-04-27 04:27] LABS: BASOPHILS ABSOLUTE AUTO 0.03 K/mm3 (0.00-0.23); BASOPHILS PERCENT AUTO 1 % (0-2); EOSINOPHILS ABSOLUTE AUTO 0.27 K/mm3 (0.00-0.68); EOSINOPHILS PERCENT AUTO 6 % (0-6); Hematocrit 23.1 % (37.0-53.0); Hemoglobin 7.2 g/dL (13.5-17.5); IMMATURE GRAN ABSOLUTE AUTO 0.02 K/mm3 (0.00-0.10); IMMATURE GRAN PERCENT AUTO 0 % (0-1); LYMPHOCYTES ABSOLUTE AUTO 0.81 K/mm3 (0.84-5.20); LYMPHOCYTES PERCENT AUTO 17 % (21-46); MONOCYTES ABSOLUTE AUTO 0.48 K/mm3 (0.16-1.47); MONOCYTES PERCENT AUTO 10 % (4-13); Mean Corpuscular HGB 29.9 pg (26.0-34.0); Mean Corpuscular HGB Conc 31.2 g/dL (31.5-36.5); Mean Corpuscular Volume 96 fL (80-100); Mean Platelet Volume 8.7 fL (9.1-12.4); NEUTROPHILS ABSOLUTE AUTO 3.22 K/mm3 (1.96-9.15); NEUTROPHILS PERCENT AUTO 67 % (41-73); Platelet Count 219 K/mm3 (150-400); RDW Coefficient Variation 16.8 % (11.7-14.2); RDW Standard Deviation 58.8 fL (35.1-46.3); Red Blood Cell Count 2.41 M/mm3 (4.30-5.90); White Blood Cell Count 4.83 K/mm3 (4.00-11.30)
--- NOTE | 2020-04-27 05:20 | NUR ---
SHIFT SUMMARY SP L RIB FX, A/O X4, VSS, AMBULATING/VOIDING/TOLERATING PO WELL, USES CALL LIGHT APPROPRIATELY. INCREASED REDNESS TO LOWER L LEG, PT REMOVED AND REFUSED PBC, APPLIED SKIN CREAM, PT REPORTS LEG FEELING BETTER. ON TELE, HAD 10 SECOND OF V TACH, NOTIFIED HOSPITALIST (SEE NOTES). WILL CONTINUE TO MONITOR AND REPORT TO ONCOMING DAY RN.
--- NOTE | 2020-04-27 08:03 | NUR ---
PT IS SLEEPY THIS AM, ANSWERS "YES OR NO" TO QUESTIONS, TELE CHAIN PERSON REPORTS PT HAD A 9 BEAT RUN OF VTACH THIS AM, UPON ASSESSMENT PT WAS NOTED TO BE SLEEPING, AWAKENS EASILY, DENIED ANY CP, SOB OR ANY DISCOMFORT, DR. ZEPEDA NOTIFIED, NO NEW ORDERS RECEIVED, CONT. TO MONITOR FOR ANY CHANGES.
[2020-04-27 14:31] LABS: Percent Saturation 7.4 % (20.0-50.0)
--- NOTE | 2020-04-27 18:21 | NUR ---
AMBULATED WITH PHYS. TX TODAY, TOLERATED WELL, SITTING ON EDGE OF BED MOST OF THE DAY, DENIES ANY NEED FOR PAIN MEDS, DENIES ANY CP OR SOB TODAY, NO BM TODAY, NO ACUTE CHANGES THIS SHIFT.
[2020-04-28 04:45] LABS: BASOPHILS ABSOLUTE AUTO 0.04 K/mm3 (0.00-0.23); BASOPHILS PERCENT AUTO 1 % (0-2); EOSINOPHILS PERCENT AUTO 6 % (0-6); Hematocrit 23.3 % (37.0-53.0); Hemoglobin 7.3 g/dL (13.5-17.5); IMMATURE GRAN ABSOLUTE AUTO 0.03 K/mm3 (0.00-0.10); IMMATURE GRAN PERCENT AUTO 1 % (0-1); LYMPHOCYTES ABSOLUTE AUTO 0.98 K/mm3 (0.84-5.20); LYMPHOCYTES PERCENT AUTO 18 % (21-46); MONOCYTES ABSOLUTE AUTO 0.48 K/mm3 (0.16-1.47); MONOCYTES PERCENT AUTO 9 % (4-13); Mean Corpuscular HGB 29.2 pg (26.0-34.0); Mean Corpuscular HGB Conc 31.3 g/dL (31.5-36.5); Mean Corpuscular Volume 93 fL (80-100); Mean Platelet Volume 8.4 fL (9.1-12.4); NEUTROPHILS ABSOLUTE AUTO 3.54 K/mm3 (1.96-9.15); NEUTROPHILS PERCENT AUTO 66 % (41-73); Platelet Count 247 K/mm3 (150-400); RDW Coefficient Variation 16.6 % (11.7-14.2); RDW Standard Deviation 57.2 fL (35.1-46.3); White Blood Cell Count 5.37 K/mm3 (4.00-11.30)
--- NOTE | 2020-04-28 07:35 | NUR ---
SHIFT SUMMARY S/P L RIB FX, A/O X4, VSS, USES CALL LIGHT APPROPRIATELY, DENIES SOB, TOLERATING PO, VOIDING WELL IN URINAL. REPORT GIVEN TO ONCOMING DAY RN.
--- NOTE | 2020-04-28 08:33 | NUR ---
SITTING ON EDGE OF BED, EATING BREAKFAST, DENIES ANY NEED FOR PAIN MEDS, REPORTS "MY RIBS ARE SORE" DENIES ANY SOB, STATES FEELING A LITTLE BETTER TODAY, CONT. TO MONITOR FOR ANY CHANGES, ASSIST PRN.
--- NOTE | 2020-04-28 17:15 | NUR ---
SUMMARY REPORTED SOME R RIB PAIN AND L GREAT TOE PAIN BUT DENIED NEED FOR PAIN MEDS, L GREAT TOE NOTED BLEEDING THROUGH SOCK TODAY, PT STATES HE "STUBBED" HIS TOE PRIOR TO ARRIVAL TO HOSPITAL, TOE WAS CLEANSED AND DRESSED WITH OPTIFOAM AND GAUZE, PT STATES PAIN IS BETTER AFTER TOE DRESSED, DENIED ANY SOB TODAY, REFUSED ANY FURTHER IRON INFUSTIONS, DR. GODOY AWARE, HAD 1 FORMED, BROWN STOOL TODAY, GI CONSULT STILL PENDING, ENCOURAGED TO USE IS BUT PT NOT USING MUCH DUE TO PAIN WITH TAKING DEEP BREATHS, NO ACUTE CHANGES THIS SHIFT.
[2020-04-29 04:41] LABS: BASOPHILS ABSOLUTE AUTO 0.04 K/mm3 (0.00-0.23); BASOPHILS PERCENT AUTO 1 % (0-2); EOSINOPHILS ABSOLUTE AUTO 0.34 K/mm3 (0.00-0.68); EOSINOPHILS PERCENT AUTO 6 % (0-6); Hematocrit 23.7 % (37.0-53.0); Hemoglobin 7.5 g/dL (13.5-17.5); IMMATURE GRAN ABSOLUTE AUTO 0.01 K/mm3 (0.00-0.10); IMMATURE GRAN PERCENT AUTO 0 % (0-1); LYMPHOCYTES ABSOLUTE AUTO 1.09 K/mm3 (0.84-5.20); LYMPHOCYTES PERCENT AUTO 20 % (21-46); MONOCYTES ABSOLUTE AUTO 0.53 K/mm3 (0.16-1.47); MONOCYTES PERCENT AUTO 10 % (4-13); Mean Corpuscular HGB 29.3 pg (26.0-34.0); Mean Corpuscular HGB Conc 31.6 g/dL (31.5-36.5); Mean Corpuscular Volume 93 fL (80-100); Mean Platelet Volume 8.4 fL (9.1-12.4); NEUTROPHILS ABSOLUTE AUTO 3.34 K/mm3 (1.96-9.15); NEUTROPHILS PERCENT AUTO 62 % (41-73); Platelet Count 222 K/mm3 (150-400); RDW Coefficient Variation 16.7 % (11.7-14.2); RDW Standard Deviation 56.5 fL (35.1-46.3); Red Blood Cell Count 2.56 M/mm3 (4.30-5.90); White Blood Cell Count 5.35 K/mm3 (4.00-11.30)
[2020-04-29 05:03] LABS: Bun/Creatinine Ratio 22.5 (12.0-20.0); Calcium, Blood 8.4 mg/dL (8.5-10.1); Creatinine, Blood 2.13 mg/dL (0.60-1.20); Potassium, Blood 3.7 mmol/L (3.5-5.5)
--- NOTE | 2020-04-29 07:15 | NUR ---
PT VSS T/O NIGHT. SATS >90% ON RA. LUNGS COARSE, DIM IN BASES. PT HAS PROD COUGH, DENEIS SOB. PAIN MGD W/TYLENOL. PT DENIED N/V/ABD PAIN, NO BM THIS SHIFT.
[2020-04-29] MEDS ORDERED: TORSE20 PO (12:54)
[2020-04-29] MEDS ORDERED: ATOR20 PO (12:55)
[2020-04-29] MEDS ORDERED: METO25ER PO (12:56)
[2020-04-29] MEDS ORDERED: PANT40 PO (12:56)
--- NOTE | 2020-04-29 15:03 | NUR ---
DISCHARGE SUMMARY PT A&OX4, VSS, LEFT FLOOR VIA WC, WITH ALL PERSONAL POSSESSIONS, TO GO TO [facility] WITH 2 DAUGHTERS, NEW MEDICATION LIST, DC INSTRUCTIONS, INCENTIVE SPIROMETER. IV DC'D.
== END 2020-04-29 13:57 | disposition home or self-care (01) | DRG 184 ==
LOC: ER 11:02 → SURS 18:38
PROVIDERS: Emergency Medicine; Family Medicine; Hospitalist; Internal Medicine; ADMIT Surgery
PROC: 0W9B3ZX Drainage of Left Pleural Cavity, Percutaneous Approach, Diagnostic (ICD-10-PCS; principal; 2020-04-24)
DX: S22.42XA Multiple fractures of ribs, left side, initial encounter for closed fracture (principal); I13.0 Hypertensive heart and chronic kidney disease with heart failure and stage 1 through stage 4 chronic kidney disease, or unspecified chronic kidney disease; I50.22 Chronic systolic (congestive) heart failure; N18.4 Chronic kidney disease, stage 4 (severe); S36.039A Unspecified laceration of spleen, initial encounter; I47.2 Ventricular tachycardia; E44.0 Moderate protein-calorie malnutrition; K92.2 Gastrointestinal hemorrhage, unspecified; I42.6 Alcoholic cardiomyopathy; Z20.828 Contact with and (suspected) exposure to other viral communicable diseases; W06.XXXA Fall from bed, initial encounter; I48.0 Paroxysmal atrial fibrillation; J44.9 Chronic obstructive pulmonary disease, unspecified; I25.10 Atherosclerotic heart disease of native coronary artery without angina pectoris; F10.129 Alcohol abuse with intoxication, unspecified; I27.20 Pulmonary hypertension, unspecified; E78.5 Hyperlipidemia, unspecified; Z91.19 Patient's noncompliance with other medical treatment and regimen; Z86.718 Personal history of other venous thrombosis and embolism; E03.9 Hypothyroidism, unspecified; Z66 Do not resuscitate; E61.1 Iron deficiency; F17.220 Nicotine dependence, chewing tobacco, uncomplicated; I25.2 Old myocardial infarction
CPT/HCPCS: 32555; 36415; 70450; 71045; 71260; 72125; 73562-LT; 74177; 80048; 80053; 82040; 82042; 82274; 82728; 82945; 83540; 83550; 83615; 83690; 83735; 83880; 84157; 84484; 85014; 85018; 85025; 85610; 85730; 86850; 86900; 86901; 87070; 87077; 87147; 87186; 87205; 88108; 89051; 93005; 93010; 93306; 93308; 93321; 94762; 96374; 96375; 96376; 97110; 97116; 97162; 97166; 97535; 99285-25; A9270; A9270-GY; C9113; G0480; J1644; J1940; J2270; J2405; J2550; J2916; J3010; J7030; J7120; Q9967; U0002

== ENCOUNTER 2020-06-25 12:25 | Day surgery (SDC) | payer MEDICARE, OTHER ==
[~2020-06-25 12:25] MED LIST changes: +ATOR20 PO; +ISOSORBIDE MONO30 MG PO; +METO5 PO
--- NOTE | 2020-06-25 13:07 | NUR ---
06/25/20 1307 Bren Crawford 1 TRY RIGHT HAND BLEW 2 TRY RIGHT UPPER ARM MOVED
== END 2020-06-25 15:12 | disposition home or self-care (01) ==
LOC: ORSCSDS 12:25
PROVIDERS: Internal Medicine Gastroenterology
PROC: 0D758ZZ Dilation of Esophagus, Via Natural or Artificial Opening Endoscopic (ICD-10-PCS; principal; 2020-06-25 13:45)
DX: R13.10 Dysphagia, unspecified (principal); D50.9 Iron deficiency anemia, unspecified; K22.2 Esophageal obstruction; I10 Essential (primary) hypertension; J44.9 Chronic obstructive pulmonary disease, unspecified; Z79.899 Other long term (current) drug therapy
CPT/HCPCS: J2704; J7120

== ENCOUNTER 2020-09-14 01:02 | Inpatient (IN) | payer MEDICARE, OTHER ==
[~2020-09-14] VITALS: Ht 172.7 cm; Wt 75.3 kg
[2020-09-14 02:08] LABS: BASOPHILS ABSOLUTE AUTO 0.04 K/mm3 (0.00-0.23); BASOPHILS PERCENT AUTO 1 % (0-2); EOSINOPHILS PERCENT AUTO 5 % (0-6); Hematocrit 27.5 % (37.0-53.0); Hemoglobin 8.2 g/dL (13.5-17.5); IMMATURE GRAN ABSOLUTE AUTO 0.01 K/mm3 (0.00-0.10); IMMATURE GRAN PERCENT AUTO 0 % (0-1); LYMPHOCYTES ABSOLUTE AUTO 1.19 K/mm3 (0.84-5.20); LYMPHOCYTES PERCENT AUTO 28 % (21-46); MONOCYTES ABSOLUTE AUTO 0.38 K/mm3 (0.16-1.47); MONOCYTES PERCENT AUTO 9 % (4-13); Mean Corpuscular HGB 25.7 pg (26.0-34.0); Mean Corpuscular HGB Conc 29.8 g/dL (31.5-36.5); Mean Corpuscular Volume 86 fL (80-100); Mean Platelet Volume 8.5 fL (9.1-12.4); NEUTROPHILS ABSOLUTE AUTO 2.48 K/mm3 (1.96-9.15); NEUTROPHILS PERCENT AUTO 58 % (41-73); Platelet Count 220 K/mm3 (150-400); RDW Coefficient Variation 17.1 % (11.7-14.2); RDW Standard Deviation 54.2 fL (35.1-46.3); Red Blood Cell Count 3.19 M/mm3 (4.30-5.90)
[2020-09-14 02:20] LABS: Albumin, Blood 3.2 g/dL (3.4-5.0); Albumin/Globulin Ratio 0.8 (0.8-1.8); Bilirubin, Total 0.8 mg/dL (0.1-1.0); Bun/Creatinine Ratio 18.7 (12.0-20.0); Calcium, Blood 8.6 mg/dL (8.5-10.1); Creatinine, Blood 2.67 mg/dL (0.60-1.20); Globulin, Blood 4.1 g/dL (2.2-4.0); Potassium, Blood 4.1 mmol/L (3.5-5.5); Total Protein, Blood 7.3 g/dL (6.4-8.2)
[2020-09-14 02:25] LABS: International Normalized Ratio 1.64; Prothrombin Time Results 17.1 Sec (9.7-11.5)
[2020-09-14 03:49] LABS: Source, Urine Clean Catch
[2020-09-14 03:51] LABS: Bilirubin, Urine Neg (Neg); Blood, Urine Neg (Neg); Glucose Qualitative, Urine Neg (Neg); Ketones, Urine Neg (Neg); Leukocyte Esterase, Urine Neg (Neg); Nitrite, Urine Neg (Neg); Protein, Urine Neg (Neg); Urobilinogen, Urine NORM (Normal)
[2020-09-14 03:53] LABS: Appearance, Urine Clear (Clear); Color, Urine Yellow (P-Yellow)
--- NOTE | 2020-09-14 06:27 | NUR ---
PATIENT IS A NEW ADMIT FROM THE ED. AXOX 3 AND THREE PERSON TRANSFER FROM [facility] TO BED. ON 3L O2 NC AND RA BASELINE. REPORTS USES ELECTRIC W/C AT ASS[facility]ED [facility]IV[facility] AND CANE. ABDOMINAL DISTENTION WITH REPORTED PAIN OF 3/10. OPEN SORE BACK OF RIGHT CALF AND FRONT OF LEFT ALATORRE. PATIENT ORIENTED TO ROOM AND CALL LIGHT SYSTEM. TALKING ON PHONE TO FAMILY. USING URINAL AT BEDSIDE. CALL LIGHT IN REACH.
--- NOTE | 2020-09-14 11:23 | NUR ---
RECIEVED A CALL FROM GUY IN ULTRASOUND.5L WERE REMOVED DURRING THE PARACENTESIS. CALLED ION IN PHARMACY HE WILL DOSE THE ALBUMIN AND SEND IT.
[2020-09-14 11:55] LABS: Automated BF RBC Count 0.002 M/mm3 (0-0); Automated BF WBC Count 0.234 K/mm3 (0-999); Body Fluid WBC Count 234 /mm3 (0-999)
[2020-09-14 12:06] LABS: Albumin, Body Fluid 2.4 g/dL
[2020-09-14 12:11] LABS: Glucose, Body Fluid 95 mg/dL
[2020-09-14 12:18] LABS: Lactate Dehydrogenase, Body Fl 98 U/L
[2020-09-14 12:24] LABS: Protein, Body Fluid 4.6 g/dL
[2020-09-14 12:33] LABS: Appearance, Body Fluid Cloudy (Clear); Color, Body Fluid Yellow (None-Yellow); Total Cell Count, Body Fluid 100
--- NOTE | 2020-09-14 17:16 | NUR ---
SHIFT SUMMARY- PT ALERT AND ORIENTED. PT IS WC BOUND AT BASELINE AT HOME. PT HAS A SCAB ON HIS LEFT ALATORRE AND A BLISTER ON THE BACK OF HIS RIGHT CALF. PT STATES BOTH BLE ARE NUMB. PLACED A MEPILEX OVER THE OPEN SORE ON THE PT CALF. PT HAD A PARACENTESIS THAT REMOVED 5L OF FLUID FROM HIS ABDOMEN. PT STATED PAIN WAS MUCH IMPROVED AFTER THAT. PT RECIEVED IV ALBUMIN AFTER THE PARACENTESIS. NO S&S OF DISTRESS AT THIS TIME. O2 SATS 100% AFTER THE PROCEDURE, PT STATES HIS BREATHING IS "MUCH BETTER." WILL CTM AND PASS ON TO NIGHT RN IN BEDSIDE REPORT.
--- NOTE | 2020-09-15 03:57 | NUR ---
SHIFT SUMMARY PATIENT HAD NO ACUTE CHANGES OBSERVED. AXOX 3 AND BEDREST. W/C BOUND BASELINE AT HOME. IMDUR 30 MG TABLET HELD WITH SBP<105 PER PARAMETERS; SBP 97/49. ROOM AIR AND PIV REMAINS INTACT. CHEWING TOBACCO IN ROOM. DENIES PAIN, SOB, AND N/V. VSS/AFEBRILE. CALL LIGHT IN REACH. BED IN LOWEST POSITION. WILL CONTINUE TO MONITOR UNTIL DAY SHIFT NURSE ASSUMES CARE.
[2020-09-15 11:07] LABS: BASOPHILS ABSOLUTE AUTO 0.03 K/mm3 (0.00-0.23); BASOPHILS PERCENT AUTO 1 % (0-2); EOSINOPHILS ABSOLUTE AUTO 0.15 K/mm3 (0.00-0.68); EOSINOPHILS PERCENT AUTO 3 % (0-6); Hematocrit 26.5 % (37.0-53.0); IMMATURE GRAN ABSOLUTE AUTO 0.02 K/mm3 (0.00-0.10); IMMATURE GRAN PERCENT AUTO 0 % (0-1); LYMPHOCYTES ABSOLUTE AUTO 0.88 K/mm3 (0.84-5.20); LYMPHOCYTES PERCENT AUTO 19 % (21-46); MONOCYTES ABSOLUTE AUTO 0.45 K/mm3 (0.16-1.47); MONOCYTES PERCENT AUTO 10 % (4-13); Mean Corpuscular HGB 26.1 pg (26.0-34.0); Mean Corpuscular HGB Conc 30.2 g/dL (31.5-36.5); Mean Corpuscular Volume 87 fL (80-100); Mean Platelet Volume 8.4 fL (9.1-12.4); NEUTROPHILS ABSOLUTE AUTO 3.09 K/mm3 (1.96-9.15); NEUTROPHILS PERCENT AUTO 67 % (41-73); Platelet Count 187 K/mm3 (150-400); RDW Coefficient Variation 17.2 % (11.7-14.2); RDW Standard Deviation 54.4 fL (35.1-46.3); Red Blood Cell Count 3.06 M/mm3 (4.30-5.90); White Blood Cell Count 4.62 K/mm3 (4.00-11.30)
[2020-09-15 11:27] LABS: Bun/Creatinine Ratio 17.9 (12.0-20.0); Calcium, Blood 8.3 mg/dL (8.5-10.1); Creatinine, Blood 3.07 mg/dL (0.60-1.20)
--- NOTE | 2020-09-15 18:24 | NUR ---
SHIFT SUMMARY- PT HAS HAD NO ACUTE CHANGE T/O THE DAY. PT HAS BEEN ON ROOM AIR WITH NO C/O SOB. PT HAD A BED BATH THIS MORNING AND WAS UP IN A CHAIR FOR BREAKFAST. ABD ULTRASOUND COMPLETED TO LOOK FOR ASCITIES NO RECOMENDATION FOR DRAINAGE. CALLED DR COELHO THIS EVENING AND THE PLAN IS TO REEVALUATE TOMORROW MORNING. IF PT CONTINUES TO SAT WELL ON ROOM AIR AND DENY SOB HE MAY DC HOME TOMORROW. WILL PASS ON TO NIGHT RN IN BEDSIDE REPORT.
--- NOTE | 2020-09-16 04:03 | NUR ---
SHIFT SUMMARY PATIENT HAD NO ACUTE CHANGES OBSERVED. AXOX 3 AND BEDREST. ON ROOM AIR. DENIES PAIN, SOB, AND N/V. PIV REMAINS INTACT. VSS/AFEBRILE. COOPERATIVE WITH CARE. REPORTS NOT NEEDING ANY OXYGEN PRN THIS SHIFT AND BREATHING IMPROVING. CALL LIGHT IN REACH. BED IN LOWEST POSITION. WILL CONTINUE TO MONITOR UNTIL DAY SHIFT NURSE ASSUMES CARE.
[2020-09-16 05:03] LABS: BASOPHILS ABSOLUTE AUTO 0.03 K/mm3 (0.00-0.23); BASOPHILS PERCENT AUTO 1 % (0-2); EOSINOPHILS ABSOLUTE AUTO 0.23 K/mm3 (0.00-0.68); EOSINOPHILS PERCENT AUTO 5 % (0-6); Hematocrit 24.5 % (37.0-53.0); Hemoglobin 7.3 g/dL (13.5-17.5); IMMATURE GRAN ABSOLUTE AUTO 0.01 K/mm3 (0.00-0.10); IMMATURE GRAN PERCENT AUTO 0 % (0-1); LYMPHOCYTES PERCENT AUTO 20 % (21-46); MONOCYTES ABSOLUTE AUTO 0.38 K/mm3 (0.16-1.47); MONOCYTES PERCENT AUTO 9 % (4-13); Mean Corpuscular HGB 25.6 pg (26.0-34.0); Mean Corpuscular HGB Conc 29.8 g/dL (31.5-36.5); Mean Corpuscular Volume 86 fL (80-100); Mean Platelet Volume 8.5 fL (9.1-12.4); NEUTROPHILS ABSOLUTE AUTO 2.87 K/mm3 (1.96-9.15); NEUTROPHILS PERCENT AUTO 65 % (41-73); Platelet Count 185 K/mm3 (150-400); RDW Coefficient Variation 17.1 % (11.7-14.2); Red Blood Cell Count 2.85 M/mm3 (4.30-5.90); White Blood Cell Count 4.42 K/mm3 (4.00-11.30)
[2020-09-16 05:20] LABS: Albumin, Blood 2.8 g/dL (3.4-5.0); Anion Gap 9 mmol/L (6-16); Blood Urea Nitrogen 56 mg/dL (8-24); Bun/Creatinine Ratio 15.4 (12.0-20.0); CO2, Blood 23 mmol/L (21-32); Calcium, Blood 7.9 mg/dL (8.5-10.1); Chloride, Blood 106 mmol/L (98-108); Creatinine, Blood 3.63 mg/dL (0.60-1.20); Glomerular Filtration Rate 17 (60-); Glucose, Blood 113 mg/dL (70-99); Phosphorus, Blood 3.9 mg/dL (2.5-4.9); Potassium, Blood 4.2 mmol/L (3.5-5.5); Sodium, Blood 138 mmol/L (136-145)
[2020-09-16 11:00] LABS: Percent Saturation 13.5 % (20.0-50.0)
--- NOTE | 2020-09-16 17:56 | NUR ---
SHIFT SUMMARY. A&OX3, PLEASANT AND COOPERATIVE WITH CARE. PT REPORTS ABD PAIN THAT IS TOLERABLE AND HAS IMPROVED SIGNIFICANTLY SINCE PARACENTESIS A FEW DAYS AGO PT DENIES SOB, N/V. DR. CAMPBELL CONSULTED FOR WORSENING RENAL FUNCTION PER DR. SAMUEL. PT PARTICIPATED WITH P/T AND TOLERATED WELL. NO OTHER CHANGES OR CONCERNS.
[2020-09-17 03:12] LABS: Bilirubin, Urine Neg (Neg); Blood, Urine Neg (Neg); Glucose Qualitative, Urine Neg (Neg); Ketones, Urine Neg (Neg); Leukocyte Esterase, Urine Neg (Neg); Nitrite, Urine Neg (Neg); Protein, Urine 1+ (Neg); Specific Gravity, Urine 1.015 (1.003-1.022); Urobilinogen, Urine NORM (Normal)
[2020-09-17 03:44] LABS: Appearance, Urine Clear (Clear); Color, Urine Yellow (P-Yellow)
[2020-09-17 05:33] LABS: Hematocrit 25.3 % (37.0-53.0); Hemoglobin 7.7 g/dL (13.5-17.5)
--- NOTE | 2020-09-17 05:41 | NUR ---
[facility] SUMMARY NO ACUTE CHANGES THIS SHIFT. PT AAOX4 AND VERY PLEASANT. PT COMPLAINED OF SOME MINOR LOWER ABD DISCOMFORT WHICH HE SAID "ITS JUST FROM ALL THE STUFF I HAVE GOING ON, NOTHING NEW". PT STATES IT DOES SEEM TO BE HELPED WITH PROTONIX. DENIES OTHER NEEDS. NEW UA OBTAINED PER DR CAMPBELL'S ORDER. VSS, WILL CONTINUE TO MONITOR.
[2020-09-17 05:52] LABS: Albumin, Blood 3.1 g/dL (3.4-5.0); Anion Gap 7 mmol/L (6-16); Blood Urea Nitrogen 64 mg/dL (8-24); Bun/Creatinine Ratio 15.2 (12.0-20.0); CO2, Blood 24 mmol/L (21-32); CPK Creatine Kinase 87 U/L (39-308); Calcium, Blood 8.1 mg/dL (8.5-10.1); Chloride, Blood 105 mmol/L (98-108); Creatinine, Blood 4.22 mg/dL (0.60-1.20); Glomerular Filtration Rate 15 (60-); Glucose, Blood 103 mg/dL (70-99); Potassium, Blood 4.5 mmol/L (3.5-5.5); Sodium, Blood 136 mmol/L (136-145)
--- NOTE | 2020-09-17 11:03 | NUR ---
at 0845 on 09/17/20 the pt gave this job specification writer permission to be his student nurse for the morning.
--- NOTE | 2020-09-17 18:37 | NUR ---
SHIFT SUMMARY PT AxOx3-4 TODAY. OCCASIONAL CONFUSION. COOPERATIVE WITH CARE. PT C/O ABDOMINAL PAIN THIS AFTERNOON. MEDICATED PER EMAR. N/V SET IN THIS EVENING. MEDICATED PER EMAR. ORDERED STOOL AND URINE CULTURE. UNCOLLECTED ON THIS SHIFT. VITALS REVIEWED. PT CURRENTLY RESTING IN BED WITH CALL LIGHT IN REACH. STATES HE LOST HIS APPETITE THIS FOR DINNER D/T N/V. DENIES ANY NEEDS AT THIS TIME.
--- NOTE | 2020-09-18 05:00 | NUR ---
SHIFT SUMMARY NO ACUTE CHANGES THIS SHIFT. PT HAS SLEPT WELL T/O SHIFT WITHOUT COMPLAINTS OF ANY KIND. URINE SPECIMEN COLLECTED ON THIS SHIFT, THOUGH WE STILL NEED A STOOL SAMPLE. PT USES URINAL IN BED. PT HAS HAD A FEW EPISODES OF COUGHING UP THICK, WHITE/CLEAR SPUTUM. PT IS SITTING UP IN BED WITH EYES CLOSED, EVEN AND UNLABORED RESPIRATIONS. BED IN LOWERED POSITION WITH ALARM IN PLACE. CALL LIGHT AND PERSONAL ITEMS WITH IN REACH. NO APPARENT NEEDS AT THIS TIME, WILL CONTINUE TO MONITOR UNTIL REPORT GIVEN TO DAY RN.
[2020-09-18 05:22] LABS: BASOPHILS ABSOLUTE AUTO 0.03 K/mm3 (0.00-0.23); BASOPHILS PERCENT AUTO 1 % (0-2); EOSINOPHILS ABSOLUTE AUTO 0.02 K/mm3 (0.00-0.68); EOSINOPHILS PERCENT AUTO 1 % (0-6); Hemoglobin 8.2 g/dL (13.5-17.5); IMMATURE GRAN PERCENT AUTO 0 % (0-1); LYMPHOCYTES PERCENT AUTO 9 % (21-46); MONOCYTES ABSOLUTE AUTO 0.34 K/mm3 (0.16-1.47); MONOCYTES PERCENT AUTO 10 % (4-13); Mean Corpuscular HGB 26.1 pg (26.0-34.0); Mean Corpuscular HGB Conc 30.4 g/dL (31.5-36.5); Mean Corpuscular Volume 86 fL (80-100); Mean Platelet Volume 8.6 fL (9.1-12.4); NEUTROPHILS PERCENT AUTO 80 % (41-73); Platelet Count 192 K/mm3 (150-400); RDW Coefficient Variation 17.3 % (11.7-14.2); Red Blood Cell Count 3.14 M/mm3 (4.30-5.90); White Blood Cell Count 3.49 K/mm3 (4.00-11.30)
[2020-09-18 05:52] LABS: Albumin, Blood 3.2 g/dL (3.4-5.0); Anion Gap 11 mmol/L (6-16); Blood Urea Nitrogen 66 mg/dL (8-24); Bun/Creatinine Ratio 14.8 (12.0-20.0); CO2, Blood 21 mmol/L (21-32); Calcium, Blood 8.3 mg/dL (8.5-10.1); Chloride, Blood 104 mmol/L (98-108); Creatinine, Blood 4.46 mg/dL (0.60-1.20); Glomerular Filtration Rate 14 (60-); Glucose, Blood 81 mg/dL (70-99); Phosphorus, Blood 4.1 mg/dL (2.5-4.9); Potassium, Blood 5.2 mmol/L (3.5-5.5); Sodium, Blood 136 mmol/L (136-145)
--- NOTE | 2020-09-18 18:07 | NUR ---
PT RESTING IN BED AFTER PM MEDICATION ADMIN AND DINNER. PT MAKES NO C/O SOB AND IS NOT COUGHING, ALERT AND ORIENTED X4. PT HAS CHRONIC PAIN THAT IS WELL MANAGED WITH MEDICATION PER EMAR Q12. PT IV LINE SL AND WNL, BED IN LOW POSITION AND CALL LIGHT WITHIN REACH.
--- NOTE | 2020-09-19 04:57 | NUR ---
SHIFT SUMMARY NO ACUTE CHANGES THIS SHIFT. MEDICATED FOR PAIN X1. PT C/O SOME ABDOMINAL DISCOMFORT REQUESTED BOWEL CARE, MEDICATED PER OCT X1. OTHERWISE NO OTHER COMPLAINTS THIS SHIFT. PT IS PLEASANT AND COOPERATIVE WITH CARE, A&O X4. PT IS LAYING IN BED EVEN AND UNLABORED RESPIRATIONS. LAB CURRENTLY IN ROOM WITH PT. BED IN LOWERED POSITION WITH ALARM IN PLACE. CALL LIGHT AND PERSONAL ITEMS WITH IN REACH. NO APPARENT NEEDS OR DISTRESS AT THIS TIME, WILL CONTINUE TO MONITOR UNTIL REPORT GIVEN TO DAY RN.
[2020-09-19 05:21] LABS: BASOPHILS ABSOLUTE AUTO 0.02 K/mm3 (0.00-0.23); BASOPHILS PERCENT AUTO 1 % (0-2); EOSINOPHILS ABSOLUTE AUTO 0.11 K/mm3 (0.00-0.68); EOSINOPHILS PERCENT AUTO 5 % (0-6); Hematocrit 23.5 % (37.0-53.0); Hemoglobin 7.4 g/dL (13.5-17.5); Mean Corpuscular HGB 26.4 pg (26.0-34.0); Mean Corpuscular HGB Conc 31.5 g/dL (31.5-36.5); Mean Corpuscular Volume 84 fL (80-100); Mean Platelet Volume 8.6 fL (9.1-12.4); Platelet Count 161 K/mm3 (150-400); RDW Coefficient Variation 17.4 % (11.7-14.2); RDW Standard Deviation 53.5 fL (35.1-46.3)
[2020-09-19 05:26] LABS: IMMATURE GRAN ABSOLUTE AUTO 0.01 K/mm3 (0.00-0.10); IMMATURE GRAN PERCENT AUTO 0 % (0-1); LYMPHOCYTES ABSOLUTE AUTO 0.63 K/mm3 (0.84-5.20); LYMPHOCYTES PERCENT AUTO 26 % (21-46); MONOCYTES ABSOLUTE AUTO 0.31 K/mm3 (0.16-1.47); MONOCYTES PERCENT AUTO 13 % (4-13); NEUTROPHILS ABSOLUTE AUTO 1.32 K/mm3 (1.96-9.15); NEUTROPHILS PERCENT AUTO 55 % (41-73)
[2020-09-19 05:44] LABS: Albumin, Blood 2.9 g/dL (3.4-5.0); Anion Gap 11 mmol/L (6-16); Blood Urea Nitrogen 68 mg/dL (8-24); Bun/Creatinine Ratio 15.2 (12.0-20.0); CO2, Blood 22 mmol/L (21-32); Calcium, Blood 7.8 mg/dL (8.5-10.1); Chloride, Blood 99 mmol/L (98-108); Creatinine, Blood 4.47 mg/dL (0.60-1.20); Glomerular Filtration Rate 14 (60-); Glucose, Blood 87 mg/dL (70-99); Phosphorus, Blood 4.8 mg/dL (2.5-4.9); Potassium, Blood 4.5 mmol/L (3.5-5.5); Sodium, Blood 132 mmol/L (136-145)
[2020-09-19 13:40] LABS: Stool Occult Blood Guaiac 1 Neg (Neg)
--- NOTE | 2020-09-19 18:32 | NUR ---
PT IS RESTING IN BED AFTER PM MEDICATION ADMIN AND DINNER. PT MADE NO COMPLAINTS OF PAIN OR SOB THIS SHIFT. PT ALERT AND ORIENTED X4, IV LINE SL AND WNL. BED IN LOW POSITION AND CALL LIGHT WITHIN REACH. STAFF WILL CONT. TO NONITOR.
[2020-09-20 05:34] LABS: Hematocrit 24.2 % (37.0-53.0); Hemoglobin 7.7 g/dL (13.5-17.5); Mean Corpuscular HGB 26.3 pg (26.0-34.0); Mean Corpuscular HGB Conc 31.8 g/dL (31.5-36.5); Mean Corpuscular Volume 83 fL (80-100); Mean Platelet Volume 8.7 fL (9.1-12.4); Platelet Count 183 K/mm3 (150-400); RDW Coefficient Variation 17.2 % (11.7-14.2); RDW Standard Deviation 52.1 fL (35.1-46.3); Red Blood Cell Count 2.93 M/mm3 (4.30-5.90); White Blood Cell Count 4.29 K/mm3 (4.00-11.30)
[2020-09-20 06:23] LABS: Anion Gap 12 mmol/L (6-16); Blood Urea Nitrogen 73 mg/dL (8-24); Bun/Creatinine Ratio 15.8 (12.0-20.0); CO2, Blood 21 mmol/L (21-32); Calcium, Blood 7.9 mg/dL (8.5-10.1); Chloride, Blood 97 mmol/L (98-108); Creatinine, Blood 4.63 mg/dL (0.60-1.20); Glomerular Filtration Rate 13 (60-); Glucose, Blood 120 mg/dL (70-99); Phosphorus, Blood 4.2 mg/dL (2.5-4.9); Potassium, Blood 4.1 mmol/L (3.5-5.5); Sodium, Blood 130 mmol/L (136-145)
[2020-09-20 06:27] LABS: BASOPHILS PERCENT MAN 0 % (0-2); EOSINOPHILS ABSOLUTE MAN 0.25 K/mm3 (0.00-0.68); EOSINOPHILS PERCENT MAN 6 % (0-6); LYMPHOCYTES ABSOLUTE MAN 0.81 K/mm3 (0.84-5.20); LYMPHOCYTES PERCENT MAN 19 % (21-46); MONOCYTES ABSOLUTE MAN 0.34 K/mm3 (0.16-1.47); MONOCYTES PERCENT MAN 8 % (4-13); NEUTROPHILS ABSOLUTE MAN 2.87 K/mm3 (1.96-9.15); SEG NEUTROPHILS PERCENT MAN 67 % (41-73); TOTAL CELLS COUNTED 100
--- NOTE | 2020-09-20 07:31 | NUR ---
SHIFT SUMMARY A/O, ABLE TO MAKE NEEDS KNOWN. COOPERATIVE WITH CARE. CALLS AND ANSWERS QUESTIONS APPROPRIATELY. C/O PAIN/DISCOMFORT TO ABDOMEN; MEDICATED PER EMAR. ALSO UTILIZING K-PAD. APPEARED TO REST MUCH OF THE NIGHT. VSS/AFEBRILE. REMAINS ON RA WITH EVEN RESPIRATIONS. NO ACUTE CHANGES NOTED. BED REMAINS IN LOWEST POSITION. CALL LIGHT AND BELONGINGS WITHIN REACH. CONTINUE WITH CURRENT PLAN OF CARE. REPORT GIVEN TO ONCOMING RN.
--- NOTE | 2020-09-20 18:03 | NUR ---
SHIFT SUMMARY PT HAD EPISODE OF NAUSEA & DRY HEAVING THIS AM. ZOFRAN GIVEN WITH SOME RELIEF. ZOFRAN GIVEN TWICE THIS SHIFT. ABD PAIN PERSISTS WITH NO RELIEF. MD AWARE. XARELTO STOPPED FOR POSSIBLE PARACENTESIS TOMORROW. GI ALSO CONSULTED. DR. CAMPBELL STRATED PT ON IV FLUIDS X1 BAG. PT HAD REFUSED ALL 3 MEALS TODAY, STATING HE IS TOO UNCOMFORTABLE & FULL TO EAT. PT DID TOLERATE A LITTLE WATER TODAY. NO OTHER CHANGES IN ASSESSMENT AT THIS TIME. VS REVIEWED. PT RESTING IN BED ON HIS R SIDE. K PAD AT BEDSIDE FOR COMFORT. CALL LIGHT IN REACH. PT DENIES OTHER NEEDS AT THIS TIME.
--- NOTE | 2020-09-21 03:23 | NUR ---
SHIFT SUMMARY\ PT AOX3. PAIN HAS IMPROVED T/O SHIFT. REPORTS PAIN 08/18. HE FELT NAUSEA AT THE BEGINNING OF SHIFT, ADMINISTERED ZOFRAN ONCE. DENIES NAUSEA IN THE MORNING.IV FLUID STILL INFUSING. HE HAS A 1 SMALL BM. HE IS TOLERATING HIS ENSURE, SANDWICH AND BANANA DENIES PAIN AND N/V. XARELTO STILL ON HOLD FOR POSSIBLE PAREACENTESIS TODAY. K PAD ON BEDSIDE. VSS. CALL LIGHT WITHIN REACH.
[2020-09-21 05:16] LABS: BASOPHILS ABSOLUTE AUTO 0.02 K/mm3 (0.00-0.23); BASOPHILS PERCENT AUTO 0 % (0-2); EOSINOPHILS ABSOLUTE AUTO 0.27 K/mm3 (0.00-0.68); EOSINOPHILS PERCENT AUTO 6 % (0-6); Hematocrit 24.4 % (37.0-53.0); Hemoglobin 7.6 g/dL (13.5-17.5); IMMATURE GRAN ABSOLUTE AUTO 0.01 K/mm3 (0.00-0.10); IMMATURE GRAN PERCENT AUTO 0 % (0-1); LYMPHOCYTES ABSOLUTE AUTO 0.89 K/mm3 (0.84-5.20); LYMPHOCYTES PERCENT AUTO 20 % (21-46); MONOCYTES ABSOLUTE AUTO 0.47 K/mm3 (0.16-1.47); MONOCYTES PERCENT AUTO 11 % (4-13); Mean Corpuscular HGB 26.1 pg (26.0-34.0); Mean Corpuscular HGB Conc 31.1 g/dL (31.5-36.5); Mean Corpuscular Volume 84 fL (80-100); Mean Platelet Volume 9.1 fL (9.1-12.4); NEUTROPHILS ABSOLUTE AUTO 2.81 K/mm3 (1.96-9.15); NEUTROPHILS PERCENT AUTO 63 % (41-73); Platelet Count 166 K/mm3 (150-400); RDW Coefficient Variation 17.4 % (11.7-14.2); RDW Standard Deviation 53.1 fL (35.1-46.3); Red Blood Cell Count 2.91 M/mm3 (4.30-5.90); White Blood Cell Count 4.47 K/mm3 (4.00-11.30)
[2020-09-21 05:35] LABS: Albumin, Blood 2.8 g/dL (3.4-5.0); Anion Gap 11 mmol/L (6-16); Blood Urea Nitrogen 75 mg/dL (8-24); Bun/Creatinine Ratio 16.7 (12.0-20.0); CO2, Blood 22 mmol/L (21-32); Calcium, Blood 7.6 mg/dL (8.5-10.1); Chloride, Blood 98 mmol/L (98-108); Glomerular Filtration Rate 14 (60-); Glucose, Blood 123 mg/dL (70-99); Phosphorus, Blood 4.9 mg/dL (2.5-4.9); Potassium, Blood 3.9 mmol/L (3.5-5.5); Sodium, Blood 131 mmol/L (136-145)
--- NOTE | 2020-09-21 17:59 | NUR ---
PATIENT IS A/OX4, UP WITH FWW AND 1 ASSIST. PAIN WNL THIS SHIFT. DRESSINGS TO BLE REMAINS C/D/I. DENIES ANY NAUSEA, TOLERATING CARDIAC DIET. ABDOMEN ROUND AND FIRM. PLAN IS TO DO ANOTHER PARACENTESIS ONCE XARELTO HAS CLEARED HIS SYSTEM. DR CAMPBELL CONSULTING FOR NEPHROLOGY. VSS, ON RA. ABLE TO MAKE NEEDS KNOWN.
--- NOTE | 2020-09-22 04:25 | NUR ---
SHIFT SUMMARY NO ACUTE CHANGES TO REPORT THIS SHIFT. PT HAS RESTED MOST OF THE NIGHT, IRRITABLE AT TIMES, AND FORGETFUL BUT EASILY REDIRECTABLE. PT MEDICATED X1 FOR PAIN. VITALS HAVE BEEN STABLE. ASSESSMENT UNCAHGNED.
--- NOTE | 2020-09-22 06:43 | NUR ---
BNP BNP 1049 WITH 0500 LABS. ELEVATED BNP NOT NEW FOR PT, BUT NEW THIS VISIT. DISCUSSED WITH BASKET WEAVER JUANITA GABRIEL RN WHO STATES NO NEED TO NOTIFY NOC SHIFT HOSPITALIST AT THIS TIME BUT TO RELAY TO DAY RN FOR FOLLOW UP WITH ATTENDING.
[2020-09-22 11:52] LABS: BASOPHILS ABSOLUTE AUTO 0.03 K/mm3 (0.00-0.23); BASOPHILS PERCENT AUTO 1 % (0-2); EOSINOPHILS PERCENT AUTO 6 % (0-6); Hematocrit 24.1 % (37.0-53.0); Hemoglobin 7.6 g/dL (13.5-17.5); IMMATURE GRAN ABSOLUTE AUTO 0.02 K/mm3 (0.00-0.10); IMMATURE GRAN PERCENT AUTO 0 % (0-1); LYMPHOCYTES ABSOLUTE AUTO 0.79 K/mm3 (0.84-5.20); LYMPHOCYTES PERCENT AUTO 16 % (21-46); MONOCYTES ABSOLUTE AUTO 0.41 K/mm3 (0.16-1.47); MONOCYTES PERCENT AUTO 9 % (4-13); Mean Corpuscular HGB 26.2 pg (26.0-34.0); Mean Corpuscular HGB Conc 31.5 g/dL (31.5-36.5); Mean Corpuscular Volume 83 fL (80-100); Mean Platelet Volume 8.9 fL (9.1-12.4); NEUTROPHILS ABSOLUTE AUTO 3.28 K/mm3 (1.96-9.15); NEUTROPHILS PERCENT AUTO 68 % (41-73); Platelet Count 193 K/mm3 (150-400); RDW Coefficient Variation 17.3 % (11.7-14.2); RDW Standard Deviation 52.1 fL (35.1-46.3); White Blood Cell Count 4.83 K/mm3 (4.00-11.30)
[2020-09-22 12:03] LABS: Anion Gap 10 mmol/L (6-16); Blood Urea Nitrogen 76 mg/dL (8-24); CO2, Blood 23 mmol/L (21-32); Calcium, Blood 7.7 mg/dL (8.5-10.1); Chloride, Blood 97 mmol/L (98-108); Creatinine, Blood 4.76 mg/dL (0.60-1.20); Glomerular Filtration Rate 13 (60-); Glucose, Blood 108 mg/dL (70-99); Phosphorus, Blood 4.7 mg/dL (2.5-4.9); Potassium, Blood 3.9 mmol/L (3.5-5.5); Sodium, Blood 130 mmol/L (136-145)
--- NOTE | 2020-09-22 19:23 | NUR ---
NO ACUTE CHANGES THIS SHIFT. PATIENT COOPERATIVE WITH CARE, CALLS APPROPRIATELY FOR ASSISTANCE. A/OX4, CAN BE FORGETFUL AT TIMES. TRAMADOL GIVEN X1 TODAY FOR ABDOMINAL PAIN. OLEKSANDR HAS BEEN DC'D FOR A NEEDED PARACENTESIS. VSS, ON RA. VOIDS IN URINAL. DENIES ANY NAUSEA. TOLERATING DIET, BUT EATS VERY SLOWLY DUE TO PRESSURE FROM ASCITES.
[2020-09-23 05:09] LABS: BASOPHILS ABSOLUTE AUTO 0.04 K/mm3 (0.00-0.23); BASOPHILS PERCENT AUTO 1 % (0-2); EOSINOPHILS ABSOLUTE AUTO 0.28 K/mm3 (0.00-0.68); EOSINOPHILS PERCENT AUTO 6 % (0-6); Hematocrit 24.6 % (37.0-53.0); Hemoglobin 7.7 g/dL (13.5-17.5); IMMATURE GRAN ABSOLUTE AUTO 0.02 K/mm3 (0.00-0.10); IMMATURE GRAN PERCENT AUTO 0 % (0-1); LYMPHOCYTES ABSOLUTE AUTO 0.88 K/mm3 (0.84-5.20); LYMPHOCYTES PERCENT AUTO 18 % (21-46); MONOCYTES ABSOLUTE AUTO 0.43 K/mm3 (0.16-1.47); MONOCYTES PERCENT AUTO 9 % (4-13); Mean Corpuscular HGB 26.3 pg (26.0-34.0); Mean Corpuscular HGB Conc 31.3 g/dL (31.5-36.5); Mean Corpuscular Volume 84 fL (80-100); Mean Platelet Volume 8.5 fL (9.1-12.4); NEUTROPHILS ABSOLUTE AUTO 3.37 K/mm3 (1.96-9.15); NEUTROPHILS PERCENT AUTO 67 % (41-73); Platelet Count 198 K/mm3 (150-400); RDW Coefficient Variation 17.3 % (11.7-14.2); RDW Standard Deviation 52.3 fL (35.1-46.3); Red Blood Cell Count 2.93 M/mm3 (4.30-5.90); White Blood Cell Count 5.02 K/mm3 (4.00-11.30)
[2020-09-23 05:40] LABS: Anion Gap 12 mmol/L (6-16); Blood Urea Nitrogen 73 mg/dL (8-24); CO2, Blood 22 mmol/L (21-32); Calcium, Blood 7.8 mg/dL (8.5-10.1); Chloride, Blood 95 mmol/L (98-108); Creatinine, Blood 4.55 mg/dL (0.60-1.20); Glomerular Filtration Rate 13 (60-); Glucose, Blood 104 mg/dL (70-99); Phosphorus, Blood 4.6 mg/dL (2.5-4.9); Potassium, Blood 3.6 mmol/L (3.5-5.5); Sodium, Blood 129 mmol/L (136-145)
--- NOTE | 2020-09-23 07:29 | NUR ---
SHIFT SUMMARY PT IS A 74 Y/O MALE, ADMITTED FOR ACUTE RESPIRATORY FAILURE AND ACUTE KIDNEY FAILURE. HE IS A&O X 4, IRRITABLE AT TIMES, 1PA TO THE BSC. PT REPORTED ABD PAIN AND NAUSEA THIS AM, WITH SOME EMESIS NOTED THIS AM. PT WAS MEDICATED WITH PRN TRAMADOL AND ZOFRAN THIS AM. NO C/O SOB. VITAL SIGNS STABLE. NO OTHER ACUTE CHANGES IN PT CONDITION NOTED DURING THE NIGHT. WILL REPORT GIVEN TO ONCOMING RN.
[2020-09-23 12:19] LABS: International Normalized Ratio 1.22; Prothrombin Time Results 12.9 Sec (9.7-11.5)
--- NOTE | 2020-09-23 19:49 | NUR ---
SHIFT SUMMARY- PT HAS HAD NO ACUTE CHANGE T/O THE DAY IV PULLED FROM THE LEFT FORE ARM IT WAS LEAKING AND NOT PATENT PLACED A NEW ON IN THE RIGHT FORE ARM. PT HAD A PARACENTESIS TODAY 4.7 L REMOVED. PT RECIEVED ALBUMIN POST PARACENTESIS. ABD SOFT AND NON TENDER POST PARACENTESIS. PT DENIED PAIN AND NAUSEA AFTER PROCEDURE. CALLED DR RAO THIS EVENING FOR PARAMETERS FOR THE PT IV LASIX HOLD FOR SBP GREATER THAN 105. EVENING DOSE OF LASIX HELD PER PARAMETERS.
[2020-09-23 22:01] LABS: Source, Urine Voided
[2020-09-23 22:04] LABS: Bilirubin, Urine Neg (Neg); Blood, Urine Neg (Neg); Glucose Qualitative, Urine Neg (Neg); Ketones, Urine Neg (Neg); Leukocyte Esterase, Urine Neg (Neg); Nitrite, Urine Neg (Neg); Protein, Urine Neg (Neg); Specific Gravity, Urine 1.015 (1.003-1.022); Urobilinogen, Urine NORM (Normal)
[2020-09-23 22:06] LABS: Appearance, Urine Clear (Clear); Color, Urine Yellow (P-Yellow)
[2020-09-24 11:48] LABS: BASOPHILS ABSOLUTE AUTO 0.03 K/mm3 (0.00-0.23); BASOPHILS PERCENT AUTO 1 % (0-2); EOSINOPHILS PERCENT AUTO 4 % (0-6); Hematocrit 25.6 % (37.0-53.0); IMMATURE GRAN ABSOLUTE AUTO 0.03 K/mm3 (0.00-0.10); IMMATURE GRAN PERCENT AUTO 1 % (0-1); LYMPHOCYTES ABSOLUTE AUTO 0.65 K/mm3 (0.84-5.20); LYMPHOCYTES PERCENT AUTO 12 % (21-46); MONOCYTES ABSOLUTE AUTO 0.42 K/mm3 (0.16-1.47); MONOCYTES PERCENT AUTO 8 % (4-13); Mean Corpuscular HGB 26.5 pg (26.0-34.0); Mean Corpuscular HGB Conc 31.3 g/dL (31.5-36.5); Mean Corpuscular Volume 85 fL (80-100); Mean Platelet Volume 8.6 fL (9.1-12.4); NEUTROPHILS ABSOLUTE AUTO 4.17 K/mm3 (1.96-9.15); NEUTROPHILS PERCENT AUTO 76 % (41-73); Platelet Count 192 K/mm3 (150-400); RDW Coefficient Variation 17.7 % (11.7-14.2); RDW Standard Deviation 53.7 fL (35.1-46.3); Red Blood Cell Count 3.02 M/mm3 (4.30-5.90)
[2020-09-24 12:13] LABS: Albumin, Blood 2.9 g/dL (3.4-5.0); Anion Gap 10 mmol/L (6-16); Blood Urea Nitrogen 72 mg/dL (8-24); Bun/Creatinine Ratio 16.8 (12.0-20.0); CO2, Blood 23 mmol/L (21-32); Calcium, Blood 7.5 mg/dL (8.5-10.1); Chloride, Blood 100 mmol/L (98-108); Creatinine, Blood 4.28 mg/dL (0.60-1.20); Glomerular Filtration Rate 14 (60-); Glucose, Blood 132 mg/dL (70-99); Phosphorus, Blood 3.4 mg/dL (2.5-4.9); Potassium, Blood 3.7 mmol/L (3.5-5.5); Sodium, Blood 133 mmol/L (136-145)
--- NOTE | 2020-09-24 19:18 | NUR ---
PT ALERT AND ORIENTED, PLEASANT AND COOPERATIVE. NO ACUTE CHANGES NOTED, WILL CONTINUE TO MONITOR AND REPORT TO ONCOMING RN
[2020-09-25 05:14] LABS: BASOPHILS ABSOLUTE AUTO 0.03 K/mm3 (0.00-0.23); BASOPHILS PERCENT AUTO 1 % (0-2); EOSINOPHILS PERCENT AUTO 4 % (0-6); Hematocrit 24.7 % (37.0-53.0); Hemoglobin 7.8 g/dL (13.5-17.5); IMMATURE GRAN ABSOLUTE AUTO 0.01 K/mm3 (0.00-0.10); IMMATURE GRAN PERCENT AUTO 0 % (0-1); LYMPHOCYTES ABSOLUTE AUTO 0.94 K/mm3 (0.84-5.20); LYMPHOCYTES PERCENT AUTO 17 % (21-46); MONOCYTES ABSOLUTE AUTO 0.46 K/mm3 (0.16-1.47); MONOCYTES PERCENT AUTO 8 % (4-13); Mean Corpuscular HGB Conc 31.6 g/dL (31.5-36.5); Mean Corpuscular Volume 82 fL (80-100); Mean Platelet Volume 8.7 fL (9.1-12.4); NEUTROPHILS ABSOLUTE AUTO 4.03 K/mm3 (1.96-9.15); NEUTROPHILS PERCENT AUTO 71 % (41-73); Platelet Count 233 K/mm3 (150-400); RDW Coefficient Variation 17.6 % (11.7-14.2); RDW Standard Deviation 50.7 fL (35.1-46.3); White Blood Cell Count 5.67 K/mm3 (4.00-11.30)
[2020-09-25 05:36] LABS: Albumin, Blood 2.8 g/dL (3.4-5.0); Anion Gap 9 mmol/L (6-16); Blood Urea Nitrogen 68 mg/dL (8-24); Bun/Creatinine Ratio 17.3 (12.0-20.0); CO2, Blood 25 mmol/L (21-32); Calcium, Blood 7.5 mg/dL (8.5-10.1); Chloride, Blood 100 mmol/L (98-108); Creatinine, Blood 3.92 mg/dL (0.60-1.20); Glomerular Filtration Rate 16 (60-); Glucose, Blood 100 mg/dL (70-99); Phosphorus, Blood 3.4 mg/dL (2.5-4.9); Potassium, Blood 3.7 mmol/L (3.5-5.5); Sodium, Blood 134 mmol/L (136-145)
--- NOTE | 2020-09-25 07:37 | NUR ---
SHIFT SUMMARY NO ACUTE CHANGES THIS SHIFT. AOX4. VSS. REPORTS PAIN "ALLOVER BODY", MEDICATED 1X c ULTRAM, ABLE TO GET COMFORTABLE AFTER. SLEPT WELL T/O NIGHT. VOIDING WELL, 750ML URINE OUTPUT THIS SHIFT. MAINTAINED 1500ML FLUID RESTRICTION. ABD MOD DISTENDED, TENDER TO PALPATION, BANDAID ACROSS PARACENTESIS SITE. CALL LIGHT IN REACH & PT ABLE TO MAKE NEEDS KNOWN.
--- NOTE | 2020-09-25 17:19 | NUR ---
SHIFT SUMMARY NO ACUTE CHANGES THIS SHIFT. PATIENT IS ALERT, ORIENTED, ABLE TO MAKE HIS NEEDS KNOWN. HE WAS PLEASANT AND COOPERATIVE WITH CARE. HE STATES THAT HE WOULD LIKE TO BE DISCHARGED SOON. AWAITING NEPHROLOGY OK FOR DISCHARGE. PATIENT IS ON A 1500ML FLUID RESTRICTION AND IS COMPLIANT WITH THE ORDER. BED LOW AND LOCKED, CALL LIGHT WITHIN REACH. WILL CONT TO MONITOR AND PROVIDE REPORT TO ONCOMING SHIFT.
[2020-09-26 05:11] LABS: BASOPHILS ABSOLUTE AUTO 0.05 K/mm3 (0.00-0.23); BASOPHILS PERCENT AUTO 1 % (0-2); EOSINOPHILS ABSOLUTE AUTO 0.23 K/mm3 (0.00-0.68); EOSINOPHILS PERCENT AUTO 4 % (0-6); Hematocrit 24.5 % (37.0-53.0); Hemoglobin 7.6 g/dL (13.5-17.5); IMMATURE GRAN ABSOLUTE AUTO 0.03 K/mm3 (0.00-0.10); IMMATURE GRAN PERCENT AUTO 1 % (0-1); LYMPHOCYTES ABSOLUTE AUTO 0.95 K/mm3 (0.84-5.20); LYMPHOCYTES PERCENT AUTO 16 % (21-46); MONOCYTES ABSOLUTE AUTO 0.48 K/mm3 (0.16-1.47); MONOCYTES PERCENT AUTO 8 % (4-13); Mean Corpuscular HGB 26.3 pg (26.0-34.0); Mean Corpuscular Volume 85 fL (80-100); Mean Platelet Volume 8.6 fL (9.1-12.4); NEUTROPHILS ABSOLUTE AUTO 4.21 K/mm3 (1.96-9.15); NEUTROPHILS PERCENT AUTO 71 % (41-73); Platelet Count 213 K/mm3 (150-400); RDW Coefficient Variation 18.2 % (11.7-14.2); RDW Standard Deviation 54.4 fL (35.1-46.3); Red Blood Cell Count 2.89 M/mm3 (4.30-5.90); White Blood Cell Count 5.95 K/mm3 (4.00-11.30)
--- NOTE | 2020-09-26 05:25 | NUR ---
SHIFT SUMMARY NO ACUTE CHANGES THIS SHIFT, NO C/O ANY KIND, SLEPT T/O THE NIGHT & SLEEPING AT THIS TIME, CALL LIGHT IN REACH, WILL CONT TO MONITOR UNTIL REPORT GIVNE TO DAY RN.
[2020-09-26 05:27] LABS: Anion Gap 8 mmol/L (6-16); Blood Urea Nitrogen 69 mg/dL (8-24); CO2, Blood 26 mmol/L (21-32); Calcium, Blood 7.8 mg/dL (8.5-10.1); Chloride, Blood 102 mmol/L (98-108); Creatinine, Blood 3.64 mg/dL (0.60-1.20); Glomerular Filtration Rate 17 (60-); Glucose, Blood 113 mg/dL (70-99); Phosphorus, Blood 2.8 mg/dL (2.5-4.9); Potassium, Blood 3.8 mmol/L (3.5-5.5); Sodium, Blood 136 mmol/L (136-145)
[2020-09-26] MEDS ORDERED: FURO40 PO (12:10)
--- NOTE | 2020-09-26 14:43 | NUR ---
DISCHARGE SUMMARY PT DISCHARGED @ APPROX 1430. PT'S DAUGHTER PRESENT WHILE REVIEWING DC INSTRUCTIONS. PT INFORMED THAT HOME HEALTH WILL CONTACT HIM WELL THE OFFICES FOR HIS FOLLOW UP APPOINTMENTS. PT AND DAUGHTER HAD NO FURTHER QUESTIONS AT THIS TIME. IV WAS REMOVED AND SITE APPEARED WNL. PT STATED HE HAD ALL OF HIS BELONGINGS. RX NEEDED FAXED TO PHARMACY PREFERRED BY PT.
== END 2020-09-26 14:35 | disposition home health service (06) | DRG 432 ==
LOC: ER 01:02 → MEDS 04:53 → ER 04:53 → MEDS 04:53
PROVIDERS: Emergency Medicine; Internal Medicine; ADMIT Family Medicine
PROC: 0W9G3ZZ Drainage of Peritoneal Cavity, Percutaneous Approach (ICD-10-PCS; principal; 2020-09-14)
PROC: 0W9G3ZZ Drainage of Peritoneal Cavity, Percutaneous Approach (ICD-10-PCS; 2020-09-23)
DX: K70.31 Alcoholic cirrhosis of liver with ascites (principal); J96.01 Acute respiratory failure with hypoxia; J98.11 Atelectasis; N17.9 Acute kidney failure, unspecified; N18.4 Chronic kidney disease, stage 4 (severe); I50.22 Chronic systolic (congestive) heart failure; I13.0 Hypertensive heart and chronic kidney disease with heart failure and stage 1 through stage 4 chronic kidney disease, or unspecified chronic kidney disease; I25.2 Old myocardial infarction; I48.0 Paroxysmal atrial fibrillation; E78.5 Hyperlipidemia, unspecified; N40.0 Benign prostatic hyperplasia without lower urinary tract symptoms; D63.1 Anemia in chronic kidney disease; R16.1 Splenomegaly, not elsewhere classified; I27.20 Pulmonary hypertension, unspecified; D70.9 Neutropenia, unspecified; I95.9 Hypotension, unspecified; I50.812 Chronic right heart failure; I07.1 Rheumatic tricuspid insufficiency
CPT/HCPCS: 36415; 49083; 71045; 71046; 74177; 76705; 80048; 80053; 80069; 81003; 82042; 82105; 82272; 82550; 82607; 82728; 82746; 82945; 83540; 83550; 83615; 83690; 83880; 83935; 84145; 84157; 84300; 84550; 85014; 85018; 85025; 85610; 85730; 87040; 87070; 87205; 88108; 88305; 89051; 93005; 93010; 93308; 93321; 97110; 97116; 97162; 97530; 99285-25; A9270; G0378; J0696; J0881; J1940; J2405; J7030; J7050; P9041; P9046; Q9967

== ENCOUNTER 2020-10-09 18:17 | Emergency (ER) | payer MEDICARE, OTHER ==
[~2020-10-09] VITALS: Ht 172.7 cm; Wt 84.8 kg
[~2020-10-09 18:17] MED LIST changes: +FURO40 PO
[2020-10-09 18:42] LABS: BASOPHILS ABSOLUTE AUTO 0.03 K/mm3 (0.00-0.23); BASOPHILS PERCENT AUTO 1 % (0-2); EOSINOPHILS ABSOLUTE AUTO 0.14 K/mm3 (0.00-0.68); EOSINOPHILS PERCENT AUTO 3 % (0-6); Hematocrit 27.4 % (37.0-53.0); Hemoglobin 8.3 g/dL (13.5-17.5); IMMATURE GRAN PERCENT AUTO 0 % (0-1); LYMPHOCYTES PERCENT AUTO 22 % (21-46); MONOCYTES PERCENT AUTO 7 % (4-13); Mean Corpuscular HGB 26.1 pg (26.0-34.0); Mean Corpuscular HGB Conc 30.3 g/dL (31.5-36.5); Mean Corpuscular Volume 86 fL (80-100); Mean Platelet Volume 8.5 fL (9.1-12.4); NEUTROPHILS ABSOLUTE AUTO 2.78 K/mm3 (1.96-9.15); NEUTROPHILS PERCENT AUTO 67 % (41-73); Platelet Count 218 K/mm3 (150-400); RDW Coefficient Variation 17.9 % (11.7-14.2); Red Blood Cell Count 3.18 M/mm3 (4.30-5.90); White Blood Cell Count 4.15 K/mm3 (4.00-11.30)
[2020-10-09 18:54] LABS: Albumin, Blood 3.3 g/dL (3.4-5.0); Albumin/Globulin Ratio 0.8 (0.8-1.8); Bilirubin, Total 0.8 mg/dL (0.1-1.0); Bun/Creatinine Ratio 16.6 (12.0-20.0); Calcium, Blood 8.1 mg/dL (8.5-10.1); Creatinine, Blood 2.59 mg/dL (0.60-1.20); Potassium, Blood 3.8 mmol/L (3.5-5.5); Total Protein, Blood 7.3 g/dL (6.4-8.2)
[2020-10-09] MEDS ORDERED: CALC.25 PO (19:06)
[2020-10-09] MEDS ORDERED: FERSU300 PO (19:08)
[2020-10-09] MEDS ORDERED: METO2.5 PO (19:09)
[2020-10-09] MEDS ORDERED: XARELTO20 MG PO (19:10)
[2020-10-09] MEDS ORDERED: SPIR50 PO (19:10)
[2020-10-09 19:31] LABS: Source, Urine Catheter
[2020-10-09 19:34] LABS: Appearance, Urine Clear (Clear); Bilirubin, Urine Neg (Neg); Blood, Urine Neg (Neg); Color, Urine Yellow (P-Yellow); Glucose Qualitative, Urine Neg (Neg); Ketones, Urine Neg (Neg); Leukocyte Esterase, Urine Neg (Neg); Nitrite, Urine Neg (Neg); Protein, Urine 1+ (Neg); Specific Gravity, Urine 1.015 (1.003-1.022); Urobilinogen, Urine 1+ (Normal)
[2020-10-09 20:19] LABS: International Normalized Ratio 1.18; Prothrombin Time Results 12.5 Sec (9.7-11.5)
== END 2020-10-09 21:30 | disposition home or self-care (01) ==
LOC: ER 18:17
PROVIDERS: Physician Assistant
DX: I13.0 Hypertensive heart and chronic kidney disease with heart failure and stage 1 through stage 4 chronic kidney disease, or unspecified chronic kidney disease (principal); I50.9 Heart failure, unspecified; N18.9 Chronic kidney disease, unspecified; R18.8 Other ascites; I48.91 Unspecified atrial fibrillation; E78.5 Hyperlipidemia, unspecified; Z88.8 Allergy status to other drugs, medicaments and biological substances; Z88.5 Allergy status to narcotic agent; Z91.09 Other allergy status, other than to drugs and biological substances; Z79.899 Other long term (current) drug therapy
CPT/HCPCS: 51701; 80053; 82140; 85025; 85610; 85730; 99284

== ENCOUNTER 2020-10-13 08:02 | Emergency (ER) | payer MEDICARE, OTHER ==
[~2020-10-13] VITALS: Ht 170.2 cm; Wt 83.9 kg
[~2020-10-13 08:02] MED LIST changes: +CALC.25 PO; +FERSU300 PO; +METO2.5 PO; +SPIR50 PO
[2020-10-13] MEDS ORDERED: FURO40 PO (08:26)
== END 2020-10-13 14:32 | disposition home or self-care (01) ==
LOC: ER 08:02
DX: R18.8 Other ascites (principal); R06.00 Dyspnea, unspecified; I11.0 Hypertensive heart disease with heart failure; I50.9 Heart failure, unspecified; Z88.8 Allergy status to other drugs, medicaments and biological substances; Z88.5 Allergy status to narcotic agent; Z91.030 Bee allergy status; Z79.899 Other long term (current) drug therapy
CPT/HCPCS: 49083; 96365-59; 96366-59; 99284-25; P9041; P9046

== ENCOUNTER 2020-11-16 04:17 | Emergency (ER) | payer MEDICARE, OTHER ==
[~2020-11-16] VITALS: Ht 172.7 cm; Wt 81.7 kg
[2020-11-16 04:37] LABS: BASOPHILS ABSOLUTE AUTO 0.04 K/mm3 (0.00-0.23); BASOPHILS PERCENT AUTO 1 % (0-2); EOSINOPHILS ABSOLUTE AUTO 0.13 K/mm3 (0.00-0.68); EOSINOPHILS PERCENT AUTO 2 % (0-6); Hematocrit 26.1 % (37.0-53.0); Hemoglobin 8.2 g/dL (13.5-17.5); IMMATURE GRAN ABSOLUTE AUTO 0.02 K/mm3 (0.00-0.10); IMMATURE GRAN PERCENT AUTO 0 % (0-1); LYMPHOCYTES ABSOLUTE AUTO 1.05 K/mm3 (0.84-5.20); LYMPHOCYTES PERCENT AUTO 20 % (21-46); MONOCYTES ABSOLUTE AUTO 0.48 K/mm3 (0.16-1.47); MONOCYTES PERCENT AUTO 9 % (4-13); Mean Corpuscular HGB 26.1 pg (26.0-34.0); Mean Corpuscular HGB Conc 31.4 g/dL (31.5-36.5); Mean Corpuscular Volume 83 fL (80-100); Mean Platelet Volume 8.5 fL (9.1-12.4); NEUTROPHILS ABSOLUTE AUTO 3.62 K/mm3 (1.96-9.15); NEUTROPHILS PERCENT AUTO 68 % (41-73); Platelet Count 251 K/mm3 (150-400); RDW Coefficient Variation 17.4 % (11.7-14.2); RDW Standard Deviation 52.5 fL (35.1-46.3); Red Blood Cell Count 3.14 M/mm3 (4.30-5.90); White Blood Cell Count 5.34 K/mm3 (4.00-11.30)
[2020-11-16 04:57] LABS: Albumin, Blood 2.6 g/dL (3.4-5.0); Albumin/Globulin Ratio 0.6 (0.8-1.8); Bilirubin, Total 0.6 mg/dL (0.1-1.0); Bun/Creatinine Ratio 15.2 (12.0-20.0); Calcium, Blood 7.5 mg/dL (8.5-10.1); Creatinine, Blood 2.64 mg/dL (0.60-1.20); Globulin, Blood 4.1 g/dL (2.2-4.0); Potassium, Blood 4.1 mmol/L (3.5-5.5); Total Protein, Blood 6.7 g/dL (6.4-8.2)
== END 2020-11-16 07:45 | disposition home or self-care (01) ==
LOC: ER 04:17
PROVIDERS: Student in an Organized Health Care Education/Training Program
DX: S90.112A Contusion of left great toe without damage to nail, initial encounter (principal); S90.122A Contusion of left lesser toe(s) without damage to nail, initial encounter; I13.0 Hypertensive heart and chronic kidney disease with heart failure and stage 1 through stage 4 chronic kidney disease, or unspecified chronic kidney disease; I50.9 Heart failure, unspecified; N18.30 Chronic kidney disease, stage 3 unspecified; I48.91 Unspecified atrial fibrillation; Z79.899 Other long term (current) drug therapy; Z88.5 Allergy status to narcotic agent; Z91.030 Bee allergy status; W06.XXXA Fall from bed, initial encounter
CPT/HCPCS: 73660; 80053; 83735; 85025; 99284-25

== ENCOUNTER 2020-11-19 14:35 | Day surgery (SDC) | payer MEDICARE, OTHER | END 2020-11-19 23:19 | disposition home or self-care (01) | LOC: US 14:35 | DX: K70.31 Alcoholic cirrhosis of liver with ascites (principal) | CPT/HCPCS: 49083 ==

== ENCOUNTER 2020-12-03 14:18 | Day surgery (SDC) | payer MEDICARE, OTHER | END 2020-12-03 23:30 | disposition home or self-care (01) | LOC: US 14:18 | DX: K70.31 Alcoholic cirrhosis of liver with ascites (principal) | CPT/HCPCS: 49083 ==

== ENCOUNTER 2020-12-17 14:22 | Day surgery (SDC) | payer MEDICARE, OTHER | END 2020-12-17 23:46 | disposition home or self-care (01) | LOC: US 14:22 | DX: K70.31 Alcoholic cirrhosis of liver with ascites (principal) | CPT/HCPCS: 49083 ==

== ENCOUNTER 2020-12-31 12:53 | Day surgery (SDC) | payer MEDICARE, OTHER | END 2020-12-31 23:17 | disposition home or self-care (01) | LOC: US 12:53 | DX: K70.31 Alcoholic cirrhosis of liver with ascites (principal) | CPT/HCPCS: 36415; 49083; 85025; 85610; 85730 ==

== ENCOUNTER 2021-01-14 08:20 | Day surgery (SDC) | payer MEDICARE, OTHER | END 2021-01-14 23:00 | disposition home or self-care (01) | LOC: US 08:20 | DX: K70.31 Alcoholic cirrhosis of liver with ascites (principal) | CPT/HCPCS: 49083 ==

== ENCOUNTER → 2021-01-22 | Outpatient (CLI) | payer MEDICARE, OTHER | END | disposition home or self-care (01) | LOC: LAB 16:00 → LAB SHORT 16:00 | DX: S81.801D Unspecified open wound, right lower leg, subsequent encounter (principal) | CPT/HCPCS: 87070; 87077; 87147; 87186; 87205 ==

== ENCOUNTER 2021-01-31 13:05 | Day surgery (SDC) | payer MEDICARE, OTHER | END 2021-01-31 14:00 | disposition home or self-care (01) | LOC: US 13:05 | DX: K70.31 Alcoholic cirrhosis of liver with ascites (principal); E78.5 Hyperlipidemia, unspecified; D64.9 Anemia, unspecified; J44.9 Chronic obstructive pulmonary disease, unspecified; I13.0 Hypertensive heart and chronic kidney disease with heart failure and stage 1 through stage 4 chronic kidney disease, or unspecified chronic kidney disease; N18.4 Chronic kidney disease, stage 4 (severe); I50.22 Chronic systolic (congestive) heart failure; E03.9 Hypothyroidism, unspecified; F17.220 Nicotine dependence, chewing tobacco, uncomplicated; I25.2 Old myocardial infarction; K21.9 Gastro-esophageal reflux disease without esophagitis; Z88.5 Allergy status to narcotic agent; Z88.6 Allergy status to analgesic agent; Z88.8 Allergy status to other drugs, medicaments and biological substances; Z91.038 Other insect allergy status | CPT/HCPCS: 36415; 49083; 80069 ==

== ENCOUNTER 2021-02-11 08:23 | Day surgery (SDC) | payer MEDICARE, OTHER | END 2021-02-11 23:02 | disposition home or self-care (01) | LOC: US 08:23 | DX: K70.31 Alcoholic cirrhosis of liver with ascites (principal) | CPT/HCPCS: 49083 ==

== ENCOUNTER 2021-02-25 08:54 | Day surgery (SDC) | payer MEDICARE, OTHER | END 2021-02-25 23:00 | disposition home or self-care (01) | LOC: US 08:54 | DX: K70.31 Alcoholic cirrhosis of liver with ascites (principal) | CPT/HCPCS: 49083 ==

== ENCOUNTER 2021-03-11 08:16 | Day surgery (SDC) | payer MEDICARE, OTHER ==
[2021-03-20] MEDS ORDERED: ACET500 PO (08:55)
[2021-03-20] MEDS ORDERED: ATOR20 PO (08:55)
[2021-03-20] MEDS ORDERED: DOCU100 PO (08:56)
[2021-03-20] MEDS ORDERED: FURO40 PO (08:56)
[2021-03-20] MEDS ORDERED: FOLI1 PO (08:56)
[2021-03-20] MEDS ORDERED: KAPSPARGO SPRIN25 MG PO (08:57)
[2021-03-20] MEDS ORDERED: Isosorbide Mono30 MG PO (08:57)
[2021-03-20] MEDS ORDERED: LEVSOD100 PO (08:57)
[2021-03-20] MEDS ORDERED: PANT40 PO (08:57)
[2021-03-20] MEDS ORDERED: ONDA4 PO (08:57)
[2021-03-20] MEDS ORDERED: B-1100 M1 PO (08:58)
[2021-03-20] MEDS ORDERED: SPIR50 PO (08:58)
[2021-03-20] MEDS ORDERED: TAMS.4ER PO (08:58)
== END 2021-03-11 22:52 | disposition home or self-care (01) ==
LOC: US 08:16
DX: K70.31 Alcoholic cirrhosis of liver with ascites (principal)
CPT/HCPCS: 49083

== ENCOUNTER 2021-03-13 10:35 | Emergency (ER) | payer MEDICARE, OTHER ==
[~2021-03-13] VITALS: Ht 172.7 cm; Wt 74.8 kg
[2021-03-13] MEDS ORDERED: THERA-D2000 UNIT PO (10:52)
[2021-03-13] MEDS ORDERED: ONDA4 PO (10:53)
[2021-03-13 11:19] LABS: BASOPHILS ABSOLUTE AUTO 0.03 K/mm3 (0.00-0.23); BASOPHILS PERCENT AUTO 1 % (0-2); EOSINOPHILS ABSOLUTE AUTO 0.09 K/mm3 (0.00-0.68); EOSINOPHILS PERCENT AUTO 2 % (0-6); Hematocrit 26.7 % (37.0-53.0); Hemoglobin 8.5 g/dL (13.5-17.5); IMMATURE GRAN ABSOLUTE AUTO 0.02 K/mm3 (0.00-0.10); IMMATURE GRAN PERCENT AUTO 0 % (0-1); LYMPHOCYTES ABSOLUTE AUTO 0.81 K/mm3 (0.84-5.20); LYMPHOCYTES PERCENT AUTO 18 % (21-46); MONOCYTES ABSOLUTE AUTO 0.38 K/mm3 (0.16-1.47); MONOCYTES PERCENT AUTO 8 % (4-13); Mean Corpuscular HGB 26.2 pg (26.0-34.0); Mean Corpuscular HGB Conc 31.8 g/dL (31.5-36.5); Mean Corpuscular Volume 82 fL (80-100); Mean Platelet Volume 8.4 fL (9.1-12.4); NEUTROPHILS ABSOLUTE AUTO 3.25 K/mm3 (1.96-9.15); NEUTROPHILS PERCENT AUTO 71 % (41-73); Platelet Count 225 K/mm3 (150-400); RDW Coefficient Variation 16.8 % (11.7-14.2); RDW Standard Deviation 49.8 fL (35.1-46.3); Red Blood Cell Count 3.25 M/mm3 (4.30-5.90); White Blood Cell Count 4.58 K/mm3 (4.00-11.30)
[2021-03-13 11:38] LABS: Albumin, Blood 2.9 g/dL (3.4-5.0); Albumin/Globulin Ratio 0.7 (0.8-1.8); Bilirubin, Total 0.6 mg/dL (0.1-1.0); Bun/Creatinine Ratio 23.1 (12.0-20.0); Calcium, Blood 8.1 mg/dL (8.5-10.1); Creatinine, Blood 2.47 mg/dL (0.60-1.20); Globulin, Blood 4.1 g/dL (2.2-4.0); Potassium, Blood 4.5 mmol/L (3.5-5.5)
[2021-03-13 11:42] LABS: International Normalized Ratio 1.19; Prothrombin Time Results 12.7 Sec (9.7-11.5)
[2021-03-13] MEDS ORDERED: TAMS.4ER PO (14:30)
[2021-03-20] MEDS ORDERED: ATOR20 PO (08:55)
[2021-03-20] MEDS ORDERED: ACET500 PO (08:55)
[2021-03-20] MEDS ORDERED: FURO40 PO (08:56)
[2021-03-20] MEDS ORDERED: DOCU100 PO (08:56)
[2021-03-20] MEDS ORDERED: FOLI1 PO (08:56)
[2021-03-20] MEDS ORDERED: LEVSOD100 PO (08:57)
[2021-03-20] MEDS ORDERED: KAPSPARGO SPRIN25 MG PO (08:57)
[2021-03-20] MEDS ORDERED: ONDA4 PO (08:57)
[2021-03-20] MEDS ORDERED: PANT40 PO (08:57)
[2021-03-20] MEDS ORDERED: Isosorbide Mono30 MG PO (08:57)
[2021-03-20] MEDS ORDERED: B-1100 M1 PO (08:58)
[2021-03-20] MEDS ORDERED: SPIR50 PO (08:58)
[2021-03-20] MEDS ORDERED: TAMS.4ER PO (08:58)
== END 2021-03-13 15:28 | disposition home or self-care (01) ==
LOC: ER 10:35
PROVIDERS: Student in an Organized Health Care Education/Training Program
DX: N40.1 Benign prostatic hyperplasia with lower urinary tract symptoms (principal); K70.2 Alcoholic fibrosis and sclerosis of liver; R18.8 Other ascites; I13.0 Hypertensive heart and chronic kidney disease with heart failure and stage 1 through stage 4 chronic kidney disease, or unspecified chronic kidney disease; I50.9 Heart failure, unspecified; N18.30 Chronic kidney disease, stage 3 unspecified; E78.5 Hyperlipidemia, unspecified; K21.9 Gastro-esophageal reflux disease without esophagitis; Z79.899 Other long term (current) drug therapy; Z88.8 Allergy status to other drugs, medicaments and biological substances; Z88.6 Allergy status to analgesic agent; Z79.890 Hormone replacement therapy
CPT/HCPCS: 51702; 51798; 76705; 80053; 85025; 85610; 96374; 99284-25; J1940

== ENCOUNTER 2021-03-25 08:25 | Day surgery (SDC) | payer MEDICARE, OTHER ==
[~2021-03-25 08:25] MED LIST changes: +ACET500 PO; +B-1100 M1 PO; +KAPSPARGO SPRIN25 MG PO; +ONDA4 PO; +THERA-D2000 UNIT PO
== END 2021-03-25 23:00 | disposition home or self-care (01) ==
LOC: US 08:25
DX: K70.31 Alcoholic cirrhosis of liver with ascites (principal)
CPT/HCPCS: 49083

== ENCOUNTER 2021-03-25 10:16 | Day surgery (SDC) | payer MEDICARE, OTHER ==
[~2021-03-25] VITALS: Ht 172.7 cm; Wt 75.1 kg
--- NOTE | 2021-03-25 11:44 | NUR ---
03/25/21 [email or web address] Bren Crawford 1 TRY RIGHT UPPER ARM BEOLOW IV SPOT VEIN MOVED NO FLASH
== END 2021-03-25 13:30 | disposition home or self-care (01) ==
LOC: ORSCSDS 10:16
PROVIDERS: Internal Medicine Gastroenterology
PROC: 0DBN8ZX Excision of Sigmoid Colon, Via Natural or Artificial Opening Endoscopic, Diagnostic (ICD-10-PCS; principal; 2021-03-25 13:00)
DX: D50.9 Iron deficiency anemia, unspecified (principal); D12.5 Benign neoplasm of sigmoid colon; K57.30 Diverticulosis of large intestine without perforation or abscess without bleeding; K64.8 Other hemorrhoids; K70.30 Alcoholic cirrhosis of liver without ascites; Z86.718 Personal history of other venous thrombosis and embolism; I48.0 Paroxysmal atrial fibrillation; I50.9 Heart failure, unspecified; I10 Essential (primary) hypertension; E78.5 Hyperlipidemia, unspecified; J44.9 Chronic obstructive pulmonary disease, unspecified; E03.9 Hypothyroidism, unspecified; Z87.891 Personal history of nicotine dependence; Z79.899 Other long term (current) drug therapy
CPT/HCPCS: 88305; J2704; J7120

== ENCOUNTER 2021-04-08 08:16 | Day surgery (SDC) | payer MEDICARE, OTHER | END 2021-04-08 23:09 | disposition home or self-care (01) | LOC: US 08:16 | DX: K70.31 Alcoholic cirrhosis of liver with ascites (principal) | CPT/HCPCS: 49083 ==

== ENCOUNTER 2021-04-22 08:21 | Day surgery (SDC) | payer MEDICARE, OTHER | END 2021-04-22 22:51 | disposition home or self-care (01) | LOC: US 08:21 | DX: K70.31 Alcoholic cirrhosis of liver with ascites (principal) | CPT/HCPCS: 49083 ==

== ENCOUNTER 2021-05-06 08:29 | Day surgery (SDC) | payer MEDICARE, OTHER | END 2021-05-06 22:47 | disposition home or self-care (01) | LOC: US 08:29 | DX: K70.31 Alcoholic cirrhosis of liver with ascites (principal) | CPT/HCPCS: 49083 ==

== ENCOUNTER 2021-06-03 08:15 | Day surgery (SDC) | payer MEDICARE, OTHER | END 2021-06-03 22:44 | disposition home or self-care (01) | LOC: US 08:15 | DX: K70.31 Alcoholic cirrhosis of liver with ascites (principal) | CPT/HCPCS: 49083 ==

== ENCOUNTER 2021-06-17 08:34 | Day surgery (SDC) | payer MEDICARE, OTHER | END 2021-06-17 22:46 | disposition home or self-care (01) | LOC: US 08:34 | DX: K70.31 Alcoholic cirrhosis of liver with ascites (principal) | CPT/HCPCS: 49083 ==